=== PATIENT | female | born 1960 | race Caucasian/White ===

== ENCOUNTER 2020-06-28 07:25 | Outpatient (REF) | payer OTHER, SELFPAY ==
--- NOTE | 2020-06-28 07:49 | XR_ITS ---
EXAMINATION: BILATERAL AP KNEES STANDING. RIGHT KNEE 2 VIEWS. CLINICAL INFORMATION: Right knee pain COMPARISON: Right hand 05/04/2011 TECHNIQUE: AP bilateral knees standing. Right knee 2 views. FINDINGS: AP BILATERAL KNEE: There is loss of medial compartment joint space both knees with mild right and moderate left periarticular spurring. No loose bodies or joint effusion seen. RIGHT KNEE: There is loss of patellofemoral compartment joint space with mild suprapatellar spurring and anterior superior patellar enthesophyte at the insertion of quadriceps tendon. No loose bodies or bony erosive changes seen. The soft tissues are normal. XR/XR knee RT 2V IMPRESSION: Moderate degenerative changes medial and patellofemoral compartment right knee. No loose bodies or joint effusion seen. Moderate degenerative changes medial compartment left knee.
--- NOTE | 2020-06-28 07:49 | XR_ITS ---
EXAMINATION: BILATERAL AP KNEES STANDING. RIGHT KNEE 2 VIEWS. CLINICAL INFORMATION: Right knee pain COMPARISON: Right hand 05/04/2011 TECHNIQUE: AP bilateral knees standing. Right knee 2 views. FINDINGS: AP BILATERAL KNEE: There is loss of medial compartment joint space both knees with mild right and moderate left periarticular spurring. No loose bodies or joint effusion seen. RIGHT KNEE: There is loss of patellofemoral compartment joint space with mild suprapatellar spurring and anterior superior patellar enthesophyte at the insertion of quadriceps tendon. No loose bodies or bony erosive changes seen. The soft tissues are normal. XR/XR knee standing BI IMPRESSION: Moderate degenerative changes medial and patellofemoral compartment right knee. No loose bodies or joint effusion seen. Moderate degenerative changes medial compartment left knee.
== END 2020-06-28 07:26 | disposition home or self-care (01) ==
LOC: HO.HOSX 07:25
PROVIDERS: Visit Provider Orthopaedic Surgery
DX: M17.2 Bilateral post-traumatic osteoarthritis of knee (principal); T14.90XS Injury, unspecified, sequela; X58.XXXS Exposure to other specified factors, sequela; K21.9 Gastro-esophageal reflux disease without esophagitis; E66.9 Obesity, unspecified
CPT/HCPCS: 73560; 73565; 99212

== ENCOUNTER 2020-10-29 15:08 | Inpatient (IN) | payer OTHER, SELFPAY ==
--- NOTE | ~2020-10-29 | CT_ITS ---
EXAMINATION: CT ABDOMEN AND PELVIS WITHOUT CONTRAST CLINICAL INFORMATION: Abdominal pain, vomiting and distention COMPARISON: None TECHNIQUE: Multidetector volumetric imaging was performed from the superior aspect of the liver through the pubic symphysis. Sagittal and coronal reformatted images were obtained on the technologist's workstation. This CT examination was performed using dose optimization techniques as appropriate, variously including the following: *Automated exposure control *Adjustment of mA and/or kV according to patient size (this includes techniques or standardized protocols for targeted exams where dose is matched to indication/reason for exam; i.e. extremities or head) *Use of iterative reconstruction technique DLP: 1149 mGy-cm FINDINGS: LUNG BASES: The visualized lung bases are unremarkable. LIVER, GALLBLADDER, AND BILIARY TREE: The liver. Is low in attenuation suggestive of fatty infiltration. No focal liver lesion or biliary duct dilatation. The gallbladder is unremarkable with no evidence of radiopaque gallstones, gallbladder wall thickening, or obvious pericholecystic inflammatory changes. PANCREAS: Unremarkable. SPLEEN: Unremarkable. ADRENAL GLANDS: There is a 4.8 x 5.6 cm fatty left adrenal lesion probably representing a myelolipoma. The right adrenal gland is normal. KIDNEYS AND URETERS: There is mild to moderate left hydronephrosis from a 4 x 6 mm left UPJ stone. The right kidney is normal. BLADDER: Unremarkable. GASTROINTESTINAL TRACT: The small and large bowel are unremarkable. The appendix is unremarkable. ABDOMINAL WALL: There is diastasis of the rectus muscles and small vessel wall hernia containing fat. LYMPH NODES: Normal. VASCULAR: There are upper abdominal varices. PELVIC VISCERA: There is a 2 cm lesion exophytic to the uterine fundus probably representing a fibroid. Uterus and adnexa are otherwise. OSSEOUS STRUCTURES: There are degenerative changes of the spine and hip joints. CT/CT abdomen pelvis wo con IMPRESSION: Mild to moderate left hydronephrosis from a 4 x 6 mm left UPJ stone. Fatty liver. 4.8 x 5.6 cm fatty left adrenal lesion probably representing a benign myelolipoma. Probable fundal uterine fibroid.
--- NOTE | ~2020-10-29 | XR_ITS ---
EXAMINATION: XR ABDOMEN KUB CLINICAL INDICATION: Abdominal pain COMPARISON: 10/21/2020 TECHNIQUE: AP view of the abdomen. FINDINGS: There is a left ureteral stent in place. Multiple phleboliths overlie the pelvis. Nonobstructive bowel gas pattern. No dilated loops of bowel. Scattered gas and stool in the colon. The lung bases are clear. Mild degenerative changes of the spine. XR/XR KUB IMPRESSION: Nonobstructive bowel gas pattern. Left ureteral stent in place.
--- NOTE | ~2020-10-29 | FL_ITS ---
PROCEDURE: Intraoperative fluoroscopy INDICATION: Retrograde urography, renal stone FLUOROSCOPY: Fluoroscopy Time: 36.9 seconds Dose: 27.5 mGy Images saved: 1 TECHNIQUE: A single intraoperative fluoroscopic image is submitted during reported retrograde urography. Correlation with operative report. Evaluation is limited secondary to fluoroscopic technique. FL/FL guidance in OR IMPRESSION: Fluoroscopy was provided by radiology for this procedure. Please refer to the operative report for further information.
[2020-10-29 15:38] VITALS: BP 186/97; PULSE 69; RESP 20; TEMP 37.2; O2SAT 97; BMI 47.5
--- NOTE | 2020-10-29 15:47 | ED.ABDPAIN ---
HPI - Abdominal Pain General Chief Complaint: Abdominal Pain <LAYTON De Souza Last Filed: 10/29/20 17:12> Stated Complaint: abd pain, n/v/d <LAYTON De Souza - Last Filed: 10/29/20 17:12> Time Seen by Provider: 10/29/20 15:45 <LAYTON De Souza Last Filed: 10/29/20 17:12> Source: patient and EMS <LAYTON De Souza Last Filed: 10/29/20 17:12> Mode of arrival: EMS <LAYTON De Souza Last Filed: 10/29/20 17:12> Limitations: no limitations <LAYTON De Souza Last Filed: 10/29/20 17:12> History of Present Illness HPI narrative: 60 y/o female with history of GERD, HLD, HTN who presents to the ER with reports of epigastric abdominal pain as well as nausea and vomiting that started today. Pain has been worsening and is now 10/10. She reports the pain is in her central and upper abdomen and constant. She has had a few loose stools today as well. No blood in her stool or vomit. She denies fever, chills, urinary symptoms, cough, SOB or chest pain. She has never had pain like this before. She denies ETOH or any drug use. She denies any abdominal surgeries in the past. <LAYTON De Souza - Last Filed: 10/29/20 17:12> MD elicited complaint: abdominal pain <LAYTON De Souza Last Filed: 10/29/20 17:12> Onset (ago): hour(s) (8) <LAYTON De Souza Last Filed: 10/29/20 17:12> Pain Consistency: constant <LAYTON De Souza Last Filed: 10/29/20 17:12> Location: epigastric <LAYTON De Souza Last Filed: 10/29/20 17:12> Severity: severe <LAYTON De Souza Last Filed: 10/29/20 17:12> Pain scale (0-10): 10 <LAYTON De Souza Last Filed: 10/29/20 17:12> Quality: stabbing <LAYTON De Souza Last Filed: 10/29/20 17:12> Radiation: none <LAYTON De Souza Last Filed: 10/29/20 17:12> Migration to: no migration <LAYTON De Souza Last Filed: 10/29/20 17:12> Exacerbating factors: nothing <LAYTON De Souza Last Filed: 10/29/20 17:12> Relieving factors: nothing <LAYTON De Souza Last Filed: 10/29/20 17:12> Associated symptoms: nausea, vomiting and diarrhea <LAYTON De Souza Last Filed: 10/29/20 17:12> Related Data Home Medications: Home Medications Medication Instructions Recorded Confirmed atorvastatin 40 mg tablet 40 mg PO DAILY 04/14/20 06/14/20 fluticasone propionate 50 1 spray INTRANASAL DAILY 04/14/20 06/14/20 mcg/actuation nasal spray,suspension lisinopril 40 mg tablet 40 mg PO DAILY 04/14/20 06/14/20 loratadine 10 mg tablet 10 mg PO DAILY 04/14/20 06/14/20 naproxen 500 mg tablet,delayed 500 mg PO Q12H 04/14/20 06/14/20 release trazodone 100 mg tablet 100 mg PO BEDTIME PRN 04/14/20 06/14/20 hydrochlorothiazide 25 mg PO DAILY 05/12/20 06/14/20 lorazepam 1 mg tablet 1 mg PO BID 06/14/20 06/14/20 topiramate 25 mg PO BID 10/29/20 10/29/20 tramadol 50 mg PO Q8H PRN 10/29/20 10/29/20 Previous Rx's Medication Instructions Recorded citalopram 20 mg tablet 20 mg PO DAILY 90 Days #90 tab 08/04/20 famotidine 20 mg tablet 20 mg PO BID 30 Days #60 tab 08/09/20 albuterol sulfate 2.5 mg INHALATION TID PRN 30 Days 09/09/20 #270 ml fluticasone propionate 110 1 puff INHALATION BID 30 Days #12 g 09/09/20 mcg/actuation HFA aerosol inhaler <LAYTON De Souza Last Filed: 10/29/20 17:12> Allergies/Adverse Reactions: Allergies Allergy/AdvReac Type Severity Reaction Status Date / Time No Known Allergies Allergy Verified 06/28/20 08:09 <LAYTON De Souza - Last Filed: 10/29/20 17:12> Review of Systems Review of Systems Constitutional: No Fever, No Chills ENT/Mouth: No sore throat, No Rhinorrhea, No Swallowing Difficulty Eyes: No Eye Pain, No Swelling, No Redness Cardiovascular: No Chest Pain, No SOB, No Orthopnea, No Edema Respiratory: No Cough, No Sputum, No Wheezing, No dyspnea Gastrointestinal: No Nausea, No Vomiting, No Diarrhea, No abdominal Pain, No Hematochezia, No Melena Genitourinary: No Dysuria, No Urinary Frequency, No Hematuria Musculoskeletal: No joint pain, No Myalgias Skin: No Skin Lesions, No rash Neuro: No Weakness, No Numbness, No Dizziness, No Headache Psych: No Anxiety/Panic, No Depression Heme/Lymph: No Bruising, No Lymphadenopathy Endocrine: No Polyuria, No Polydipsia <LAYTON De Souza - Last Filed: 10/29/20 17:12> Physical Exam Vital Signs: Vital Signs: Last Vital Signs Temp 99.0 F 10/29/20 15:38 Pulse 84 10/29/20 18:50 Resp 16 10/29/20 18:50 BP 161/74 H 10/29/20 18:50 Pulse Ox 96 10/29/20 18:50 Body Mass Index 47.5 Appearance: Alert. Oriented X3. Appears uncomfortable. Eyes: Pupils equal, round and reactive to light. ENT: Pharynx normal. Neck: Normal inspection. Neck supple. CVS: Normal heart rate and rhythm. Pulses normal. Respiratory: No respiratory distress. Breath sounds normal. Abdomen: Morbidly obese, Soft with epigastric tenderness and guarding. +BS x4 Skin: Skin warm and dry. Normal skin color. Normal skin turgor. No rashes. Extremities: No lower extremity edema. Neuro: Oriented X 3. No motor deficit. No sensory deficit. <LAYTON De Souza - Last Filed: 10/29/20 17:12> Vital Signs: Last Vital Signs Temp 99.0 F 10/29/20 15:38 Pulse 84 10/29/20 18:50 Resp 16 10/29/20 18:50 BP 161/74 H 10/29/20 18:50 Pulse Ox 96 10/29/20 18:50 Body Mass Index 47.5 <Mary Ellen Brooks NP - Last Filed: 10/29/20 19:45> Course Course Course Narrative: 60 y/o female presenting with epigastric abdominal pain, nausea and vomiting that started today. She is uncomfortable and states the pain is 10/10. Will get CT scan and lab workup. IVF, zofran and morphine ordered. <LAYTON De Souza - Last Filed: 10/29/20 17:12> 7:20 p.m. discussion with hospitalist regarding plan of care, plan is to admit for obstructing renal calculus, hydronephrosis. <Mary Ellen Brooks NP - Last Filed: 10/29/20 19:45> Reevaluation(s) Reevaluation #1: CT scan showing Mild to moderate left hydronephrosis from a 4 x 6 mm left UPJ stone. Fatty liver. 4.8 x 5.6 cm fatty left adrenal lesion probably representing a benign myelolipoma. Probable fundal uterine fibroid. Labs and UA still pending. Patient unlikely to pass this stone on her own. Will get urology consult, give steroids and flomax now. Anticipate she will require admission for further management. Signed out to Mary Ellen ESPINOZA who will assume care. <LAYTON De Souza - Last Filed: 10/29/20 17:12> Consultations Consultation #1: Urology - Dr. Zabala reviewed imaging - will likely need intervention. <LAYTON De Souza - Last Filed: 10/29/20 17:12> Devineni <Mary Ellen Brooks NP - Last Filed: 10/29/20 19:45> Time: 19:15 <Mary Ellen Brooks NP - Last Filed: 10/29/20 19:45> MDM - Abdominal Pain Lab Data Result diagrams: : 10/29/20 17:18 10/29/20 17:18 <LAYTON De Souza - Last Filed: 10/29/20 17:12> Labs: Lab Results 10/29/20 10/29/20 10/29/20 Range/Units 17:18 17:18 17:18 WBC 15.0 H (4.8-10.8) X10*3/uL RBC 5.05 (4.20-5.50) X10*6/uL Hgb 12.7 (12.0-16.0) g/dl Hct 40.1 (37-47) % MCV 79.4 L (80-98) fL MCH 25.1 L (27.0-33.0) pg MCHC 31.7 (31.0-35.0) g/dl RDW 14.9 (11.0-16.0) % Plt Count 293 (160-400) X10*3/uL MPV 9.9 (9.4-12.3) fL Immature Gran % (Auto) 0.5 H (0.0-0.4) % Neut % (Auto) 88.7 H (45-73) % Lymph % (Auto) 6.4 L (20-40) % [place] % (Auto) 4.1 (2-11) % Eos % (Auto) 0.1 (0-4) % Baso % (Auto) 0.2 (0-2) % Lymph # (Auto) 1.0 L (1.2-4.9) X10*3/uL [place] # (Auto) 0.6 (0.1-1.2) X10*3/uL Eos # (Auto) 0.0 (0.0-0.4) X10*3/uL Baso # (Auto) 0.0 (0.0-0.2) X10*3/uL Abs Immat Gran (auto) 0.07 H (0.00-0.03) X10*3/uL Absolute Neuts (auto) 13.4 H (2.0-8.3) X10*3/uL Absolute Nucleated RBC 0.000 (0.0-0.012) X10*3/uL Nucleated RBC % (auto) 0.0 (0.0-0.2) /100WBC PT (10.8-13.0) SEC INR (0.9-1.1) APTT (24.1-38.0) SEC Hold Blue Top SEE NOTE Sodium 139 (135-145) mmol/L Potassium 3.9 (3.3-5.1) mmol/L Chloride 102 (96-108) mmol/L Carbon Dioxide 25 (22-29) mmol/L Anion Gap 16 (12-20) BUN 9 (9-16) mg/dL Creatinine 0.79 (0.5-1.4) mg/dL Estim Creat Clear Calc 96.9 Estimated GFR > 60 Random Glucose 278 H (60-115) mg/dL Lactic Acid (0.5-2.0) mmol/L Calcium 9.3 (8.4-10.2) mg/dL Magnesium 1.8 (1.6-2.6) mg/dL Total Bilirubin 0.7 (0.0-1.0) mg/dL Direct Bilirubin 0.3 (0.0-0.5) mg/dL AST 27 (5-31) U/L ALT 24 (0-31) U/L Alkaline Phosphatase 133 H (39-117) U/L Total Protein 8.0 (6.5-8.0) g/dL Albumin 4.0 (3.5-5.0) g/dL Lipase 23 (8-78) U/L Urine Color Urine Appearance Urine pH (5.0-8.0) Ur Specific [place] (1.005-1.025) Urine Protein (NEG-TRACE) MG/DL Urine Glucose (UA) (NEG) MG/DL Urine Ketones (NEG) MG/DL Urine Blood (NEG) Urine Nitrite (NEG) Ur Leukocyte Esterase (NEG) Urine RBC (0) /HPF Urine WBC (0-4) /HPF Ur Squamous Epith Cells /LPF Urine Bacteria /LPF Urine Opiates Screen (Not Detect) Ur Barbiturates Screen (Not Detect) Ur Phencyclidine Scrn (Not Detect) Ur Amphetamines Screen (Not Detect) U Benzodiazepines Scrn (Not Detect) Urine Cocaine Screen (Not Detect) U Marijuana (THC) Screen (Not Detect) 10/29/20 10/29/20 10/29/20 Range/Units 18:08 18:08 18:41 WBC (4.8-10.8) X10*3/uL RBC (4.20-5.50) X10*6/uL Hgb (12.0-16.0) g/dl Hct (37-47) % MCV (80-98) fL MCH (27.0-33.0) pg MCHC (31.0-35.0) g/dl RDW (11.0-16.0) % Plt Count (160-400) X10*3/uL MPV (9.4-12.3) fL Immature Gran % (Auto) (0.0-0.4) % Neut % (Auto) (45-73) % Lymph % (Auto) (20-40) % [place] % (Auto) (2-11) % Eos % (Auto) (0-4) % Baso % (Auto) (0-2) % Lymph # (Auto) (1.2-4.9) X10*3/uL [place] # (Auto) (0.1-1.2) X10*3/uL Eos # (Auto) (0.0-0.4) X10*3/uL Baso # (Auto) (0.0-0.2) X10*3/uL Abs Immat Gran (auto) (0.00-0.03) X10*3/uL Absolute Neuts (auto) (2.0-8.3) X10*3/uL Absolute Nucleated RBC (0.0-0.012) X10*3/uL Nucleated RBC % (auto) (0.0-0.2) /100WBC PT 14.0 H (10.8-13.0) SEC INR 1.2 H (0.9-1.1) APTT 29.9 (24.1-38.0) SEC Hold Blue Top Sodium (135-145) mmol/L Potassium (3.3-5.1) mmol/L Chloride (96-108) mmol/L Carbon Dioxide (22-29) mmol/L Anion Gap (12-20) BUN (9-16) mg/dL Creatinine (0.5-1.4) mg/dL Estim Creat Clear Calc Estimated GFR Random Glucose (60-115) mg/dL Lactic Acid 2.3 H* (0.5-2.0) mmol/L Calcium (8.4-10.2) mg/dL Magnesium (1.6-2.6) mg/dL Total Bilirubin (0.0-1.0) mg/dL Direct Bilirubin (0.0-0.5) mg/dL AST (5-31) U/L ALT (0-31) U/L Alkaline Phosphatase (39-117) U/L Total Protein (6.5-8.0) g/dL Albumin (3.5-5.0) g/dL Lipase (8-78) U/L Urine Color YELLOW Urine Appearance CLEAR Urine pH 6.5 (5.0-8.0) Ur Specific [place] 1.015 (1.005-1.025) Urine Protein NEG (NEG-TRACE) MG/DL Urine Glucose (UA) 500 H (NEG) MG/DL Urine Ketones 40 (NEG) MG/DL Urine Blood 1+ H (NEG) Urine Nitrite NEG (NEG) Ur Leukocyte Esterase NEG (NEG) Urine RBC 10-14 H (0) /HPF Urine WBC 0-2 (0-4) /HPF Ur Squamous Epith Cells 1+ /LPF Urine Bacteria NONE /LPF Urine Opiates Screen (Not Detect) Ur Barbiturates Screen (Not Detect) Ur Phencyclidine Scrn (Not Detect) Ur Amphetamines Screen (Not Detect) U Benzodiazepines Scrn (Not Detect) Urine Cocaine Screen (Not Detect) U Marijuana (THC) Screen (Not Detect) 10/29/20 Range/Units 18:41 WBC (4.8-10.8) X10*3/uL RBC (4.20-5.50) X10*6/uL Hgb (12.0-16.0) g/dl Hct (37-47) % MCV (80-98) fL MCH (27.0-33.0) pg MCHC (31.0-35.0) g/dl RDW (11.0-16.0) % Plt Count (160-400) X10*3/uL MPV (9.4-12.3) fL Immature Gran % (Auto) (0.0-0.4) % Neut % (Auto) (45-73) % Lymph % (Auto) (20-40) % [place] % (Auto) (2-11) % Eos % (Auto) (0-4) % Baso % (Auto) (0-2) % Lymph # (Auto) (1.2-4.9) X10*3/uL [place] # (Auto) (0.1-1.2) X10*3/uL Eos # (Auto) (0.0-0.4) X10*3/uL Baso # (Auto) (0.0-0.2) X10*3/uL Abs Immat Gran (auto) (0.00-0.03) X10*3/uL Absolute Neuts (auto) (2.0-8.3) X10*3/uL Absolute Nucleated RBC (0.0-0.012) X10*3/uL Nucleated RBC % (auto) (0.0-0.2) /100WBC PT (10.8-13.0) SEC INR (0.9-1.1) APTT (24.1-38.0) SEC Hold Blue Top Sodium (135-145) mmol/L Potassium (3.3-5.1) mmol/L Chloride (96-108) mmol/L Carbon Dioxide (22-29) mmol/L Anion Gap (12-20) BUN (9-16) mg/dL Creatinine (0.5-1.4) mg/dL Estim Creat Clear Calc Estimated GFR Random Glucose (60-115) mg/dL Lactic Acid (0.5-2.0) mmol/L Calcium (8.4-10.2) mg/dL Magnesium (1.6-2.6) mg/dL Total Bilirubin (0.0-1.0) mg/dL Direct Bilirubin (0.0-0.5) mg/dL AST (5-31) U/L ALT (0-31) U/L Alkaline Phosphatase (39-117) U/L Total Protein (6.5-8.0) g/dL Albumin (3.5-5.0) g/dL Lipase (8-78) U/L Urine Color Urine Appearance Urine pH (5.0-8.0) Ur Specific [place] (1.005-1.025) Urine Protein (NEG-TRACE) MG/DL Urine Glucose (UA) (NEG) MG/DL Urine Ketones (NEG) MG/DL Urine Blood (NEG) Urine Nitrite (NEG) Ur Leukocyte Esterase (NEG) Urine RBC (0) /HPF Urine WBC (0-4) /HPF Ur Squamous Epith Cells /LPF Urine Bacteria /LPF Urine Opiates Screen POSITIVE H (Not Detect) Ur Barbiturates Screen Not Detected (Not Detect) Ur Phencyclidine Scrn Not Detected (Not Detect) Ur Amphetamines Screen Not Detected (Not Detect) U Benzodiazepines Scrn Not Detected (Not Detect) Urine Cocaine Screen POSITIVE H (Not Detect) U Marijuana (THC) Screen Not Detected (Not Detect) <LAYTON De Souza - Last Filed: 10/29/20 17:12> Lab Results 10/29/20 10/29/20 10/29/20 Range/Units 17:18 17:18 17:18 WBC 15.0 H (4.8-10.8) X10*3/uL RBC 5.05 (4.20-5.50) X10*6/uL Hgb 12.7 (12.0-16.0) g/dl Hct 40.1 (37-47) % MCV 79.4 L (80-98) fL MCH 25.1 L (27.0-33.0) pg MCHC 31.7 (31.0-35.0) g/dl RDW 14.9 (11.0-16.0) % Plt Count 293 (160-400) X10*3/uL MPV 9.9 (9.4-12.3) fL Immature Gran % (Auto) 0.5 H (0.0-0.4) % Neut % (Auto) 88.7 H (45-73) % Lymph % (Auto) 6.4 L (20-40) % [place] % (Auto) 4.1 (2-11) % Eos % (Auto) 0.1 (0-4) % Baso % (Auto) 0.2 (0-2) % Lymph # (Auto) 1.0 L (1.2-4.9) X10*3/uL [place] # (Auto) 0.6 (0.1-1.2) X10*3/uL Eos # (Auto) 0.0 (0.0-0.4) X10*3/uL Baso # (Auto) 0.0 (0.0-0.2) X10*3/uL Abs Immat Gran (auto) 0.07 H (0.00-0.03) X10*3/uL Absolute Neuts (auto) 13.4 H (2.0-8.3) X10*3/uL Absolute Nucleated RBC 0.000 (0.0-0.012) X10*3/uL Nucleated RBC % (auto) 0.0 (0.0-0.2) /100WBC PT (10.8-13.0) SEC INR (0.9-1.1) APTT (24.1-38.0) SEC Hold Blue Top SEE NOTE Sodium 139 (135-145) mmol/L Potassium 3.9 (3.3-5.1) mmol/L Chloride 102 (96-108) mmol/L Carbon Dioxide 25 (22-29) mmol/L Anion Gap 16 (12-20) BUN 9 (9-16) mg/dL Creatinine 0.79 (0.5-1.4) mg/dL Estim Creat Clear Calc 96.9 Estimated GFR > 60 Random Glucose 278 H (60-115) mg/dL Lactic Acid (0.5-2.0) mmol/L Calcium 9.3 (8.4-10.2) mg/dL Magnesium 1.8 (1.6-2.6) mg/dL Total Bilirubin 0.7 (0.0-1.0) mg/dL Direct Bilirubin 0.3 (0.0-0.5) mg/dL AST 27 (5-31) U/L ALT 24 (0-31) U/L Alkaline Phosphatase 133 H (39-117) U/L Total Protein 8.0 (6.5-8.0) g/dL Albumin 4.0 (3.5-5.0) g/dL Lipase 23 (8-78) U/L Urine Color Urine Appearance Urine pH (5.0-8.0) Ur Specific [place] (1.005-1.025) Urine Protein (NEG-TRACE) MG/DL Urine Glucose (UA) (NEG) MG/DL Urine Ketones (NEG) MG/DL Urine Blood (NEG) Urine Nitrite (NEG) Ur Leukocyte Esterase (NEG) Urine RBC (0) /HPF Urine WBC (0-4) /HPF Ur Squamous Epith Cells /LPF Urine Bacteria /LPF Urine Opiates Screen (Not Detect) Ur Barbiturates Screen (Not Detect) Ur Phencyclidine Scrn (Not Detect) Ur Amphetamines Screen (Not Detect) U Benzodiazepines Scrn (Not Detect) Urine Cocaine Screen (Not Detect) U Marijuana (THC) Screen (Not Detect) 10/29/20 10/29/20 10/29/20 Range/Units 18:08 18:08 18:41 WBC (4.8-10.8) X10*3/uL RBC (4.20-5.50) X10*6/uL Hgb (12.0-16.0) g/dl Hct (37-47) % MCV (80-98) fL MCH (27.0-33.0) pg MCHC (31.0-35.0) g/dl RDW (11.0-16.0) % Plt Count (160-400) X10*3/uL MPV (9.4-12.3) fL Immature Gran % (Auto) (0.0-0.4) % Neut % (Auto) (45-73) % Lymph % (Auto) (20-40) % [place] % (Auto) (2-11) % Eos % (Auto) (0-4) % Baso % (Auto) (0-2) % Lymph # (Auto) (1.2-4.9) X10*3/uL [place] # (Auto) (0.1-1.2) X10*3/uL Eos # (Auto) (0.0-0.4) X10*3/uL Baso # (Auto) (0.0-0.2) X10*3/uL Abs Immat Gran (auto) (0.00-0.03) X10*3/uL Absolute Neuts (auto) (2.0-8.3) X10*3/uL Absolute Nucleated RBC (0.0-0.012) X10*3/uL Nucleated RBC % (auto) (0.0-0.2) /100WBC PT 14.0 H (10.8-13.0) SEC INR 1.2 H (0.9-1.1) APTT 29.9 (24.1-38.0) SEC Hold Blue Top Sodium (135-145) mmol/L Potassium (3.3-5.1) mmol/L Chloride (96-108) mmol/L Carbon Dioxide (22-29) mmol/L Anion Gap (12-20) BUN (9-16) mg/dL Creatinine (0.5-1.4) mg/dL Estim Creat Clear Calc Estimated GFR Random Glucose (60-115) mg/dL Lactic Acid 2.3 H* (0.5-2.0) mmol/L Calcium (8.4-10.2) mg/dL Magnesium (1.6-2.6) mg/dL Total Bilirubin (0.0-1.0) mg/dL Direct Bilirubin (0.0-0.5) mg/dL AST (5-31) U/L ALT (0-31) U/L Alkaline Phosphatase (39-117) U/L Total Protein (6.5-8.0) g/dL Albumin (3.5-5.0) g/dL Lipase (8-78) U/L Urine Color YELLOW Urine Appearance CLEAR Urine pH 6.5 (5.0-8.0) Ur Specific [place] 1.015 (1.005-1.025) Urine Protein NEG (NEG-TRACE) MG/DL Urine Glucose (UA) 500 H (NEG) MG/DL Urine Ketones 40 (NEG) MG/DL Urine Blood 1+ H (NEG) Urine Nitrite NEG (NEG) Ur Leukocyte Esterase NEG (NEG) Urine RBC 10-14 H (0) /HPF Urine WBC 0-2 (0-4) /HPF Ur Squamous Epith Cells 1+ /LPF Urine Bacteria NONE /LPF Urine Opiates Screen (Not Detect) Ur Barbiturates Screen (Not Detect) Ur Phencyclidine Scrn (Not Detect) Ur Amphetamines Screen (Not Detect) U Benzodiazepines Scrn (Not Detect) Urine Cocaine Screen (Not Detect) U Marijuana (THC) Screen (Not Detect) 10/29/20 Range/Units 18:41 WBC (4.8-10.8) X10*3/uL RBC (4.20-5.50) X10*6/uL Hgb (12.0-16.0) g/dl Hct (37-47) % MCV (80-98) fL MCH (27.0-33.0) pg MCHC (31.0-35.0) g/dl RDW (11.0-16.0) % Plt Count (160-400) X10*3/uL MPV (9.4-12.3) fL Immature Gran % (Auto) (0.0-0.4) % Neut % (Auto) (45-73) % Lymph % (Auto) (20-40) % [place] % (Auto) (2-11) % Eos % (Auto) (0-4) % Baso % (Auto) (0-2) % Lymph # (Auto) (1.2-4.9) X10*3/uL [place] # (Auto) (0.1-1.2) X10*3/uL Eos # (Auto) (0.0-0.4) X10*3/uL Baso # (Auto) (0.0-0.2) X10*3/uL Abs Immat Gran (auto) (0.00-0.03) X10*3/uL Absolute Neuts (auto) (2.0-8.3) X10*3/uL Absolute Nucleated RBC (0.0-0.012) X10*3/uL Nucleated RBC % (auto) (0.0-0.2) /100WBC PT (10.8-13.0) SEC INR (0.9-1.1) APTT (24.1-38.0) SEC Hold Blue Top Sodium (135-145) mmol/L Potassium (3.3-5.1) mmol/L Chloride (96-108) mmol/L Carbon Dioxide (22-29) mmol/L Anion Gap (12-20) BUN (9-16) mg/dL Creatinine (0.5-1.4) mg/dL Estim Creat Clear Calc Estimated GFR Random Glucose (60-115) mg/dL Lactic Acid (0.5-2.0) mmol/L Calcium (8.4-10.2) mg/dL Magnesium (1.6-2.6) mg/dL Total Bilirubin (0.0-1.0) mg/dL Direct Bilirubin (0.0-0.5) mg/dL AST (5-31) U/L ALT (0-31) U/L Alkaline Phosphatase (39-117) U/L Total Protein (6.5-8.0) g/dL Albumin (3.5-5.0) g/dL Lipase (8-78) U/L Urine Color Urine Appearance Urine pH (5.0-8.0) Ur Specific [place] (1.005-1.025) Urine Protein (NEG-TRACE) MG/DL Urine Glucose (UA) (NEG) MG/DL Urine Ketones (NEG) MG/DL Urine Blood (NEG) Urine Nitrite (NEG) Ur Leukocyte Esterase (NEG) Urine RBC (0) /HPF Urine WBC (0-4) /HPF Ur Squamous Epith Cells /LPF Urine Bacteria /LPF Urine Opiates Screen POSITIVE H (Not Detect) Ur Barbiturates Screen Not Detected (Not Detect) Ur Phencyclidine Scrn Not Detected (Not Detect) Ur Amphetamines Screen Not Detected (Not Detect) U Benzodiazepines Scrn Not Detected (Not Detect) Urine Cocaine Screen POSITIVE H (Not Detect) U Marijuana (THC) Screen Not Detected (Not Detect) <Mary Ellen Brooks NP - Last Filed: 10/29/20 19:45> Critical Care Time Critical Care Time Critical Care Time: Yes <Mary Ellen Brooks NP - Last Filed: 10/29/20 19:45> Total Critical Care Time: 45 <Mary Ellen Brooks NP - Last Filed: 10/29/20 19:45> Attestation: I have personally provided critical care time exclusive of time spent on separately billable procedures. Time includes review of laboratory data, radiology results, discussion with consultants, and monitoring for potential decompensation. Interventions were performed as documented. <Mary Ellen Brooks NP - Last Filed: 10/29/20 19:45> Discharge Plan Discharge Clinical Impression: Hydronephrosis with renal calculous obstruction <LAYTON De Souza - Last Filed: 10/29/20 17:12> Patient Disposition: Admitted As Inpatient <LAYTON De Souza - Last Filed: 10/29/20 17:12> [facility] Past Medical History Medical History: Medical History (Updated 10/29/20 @ 19:42 by Mary Ellen Brooks NP) Arthritis Asthma Bilateral post-traumatic osteoarthritis of knee Depression Dyslipidemia GERD (gastroesophageal reflux disease) History of allergic rhinitis History of headache Hx of low back pain Hypertension Insomnia Obesity Right knee pain <LAYTON De Souza - Last Filed: 10/29/20 17:12> Surgical History: Surgical History History of open reduction and internal fixation (ORIF) procedure <LAYTON De Souza - Last Filed: 10/29/20 17:12> Family History Family History: Family History Father No problems noted. Mother No problems noted. Maternal Grandmother Throat cancer Sister In good health Brother In good health <LAYTON De Souza - Last Filed: 10/29/20 17:12> Social History Social History: Social History Are you a primary rental boats caretaker to a significant other at home: No Do you presently have visiting nurse or other home services: No Alcohol intake: former Patient Tobacco Use Status: Never used Tobacco Use of substances other than those prescribed or required for medical reasons: No Advance Directives: No Advance Directives Information Provided: Yes Current occupational status: disabled Current occupation: right handed <LAYTON De Souza - Last Filed: 10/29/20 17:12>
[2020-10-29] MEDS: ondansetron HCL 4 MG/2 ML VIAL IVPUSH (16:00)
[2020-10-29] MEDS: 0.9 % Sodium Chloride 1,000 ML 999 ML IVCONT ×2 (16:01→18:45)
[2020-10-29] MEDS: Morphine Sulfate 4 MG/ML CARTRIDGE IVPUSH (17:24)
[2020-10-29 17:27] VITALS: BP 189/83; PULSE 91; RESP 16; O2SAT 98
[2020-10-29 17:27] LABS: MANUAL DIFF FLAG NO
[2020-10-29 17:29] LABS: Basophils Percent Auto 0.2 % (0-2); Eosinophils Percent Auto 0.1 % (0-4); Hematocrit 40.1 % (37-47); Hemoglobin 12.7 g/dl (12.0-16.0); Imm Gran Abs Auto 0.07 X10*3/uL (0.00-0.03); Imm Gran Pct Auto 0.5 % (0.0-0.4); Lymphocytes Percent Auto 6.4 % (20-40); Mean Corpuscular HGB Conc 31.7 g/dl (31.0-35.0); Mean Corpuscular Hemoglobin 25.1 pg (27.0-33.0); Mean Corpuscular Volume 79.4 fL (80-98); Mean Platelet Volume 9.9 fL (9.4-12.3); Monocytes Absolute Auto 0.6 X10*3/uL (0.1-1.2); Monocytes Percent Auto 4.1 % (2-11); Neutrophils Absolute Auto 13.4 X10*3/uL (2.0-8.3); Neutrophils Percent Auto 88.7 % (45-73); Platelet Count 293 X10*3/uL (160-400); Red Blood Count 5.05 X10*6/uL (4.20-5.50); Red Cell Distribution Width 14.9 % (11.0-16.0)
--- NOTE | 2020-10-29 17:35 | PC.NURSE ---
Plan for admission, Veronica to bedside discussing plan, pt agreeable
[2020-10-29 17:57] LABS: Alanine Aminotransferase 24 U/L (0-31); Alkaline Phosphatase 133 U/L (39-117); Anion Gap 16 (12-20); Aspartate Amino Transferase 27 U/L (5-31); Bilirubin Direct 0.3 mg/dL (0.0-0.5); Bilirubin Total 0.7 mg/dL (0.0-1.0); Blood Urea Nitrogen 9 mg/dL (9-16); Calcium 9.3 mg/dL (8.4-10.2); Carbon Dioxide 25 mmol/L (22-29); Chloride 102 mmol/L (96-108); Creatinine Clr Calc Pharmacy 96.9; Estimated Glomerular Filt Rate > 60; Glucose Random 278 mg/dL (60-115); Lipase 23 U/L (8-78); Magnesium 1.8 mg/dL (1.6-2.6); Potassium 3.9 mmol/L (3.3-5.1); Sodium 139 mmol/L (135-145)
[2020-10-29 18:22] LABS: INTERNATIONAL NORM RATIO 1.2 (0.9-1.1)
[2020-10-29 18:25] LABS: Partial Thromboplastin Time 29.9 SEC (24.1-38.0)
--- NOTE | 2020-10-29 18:40 | HE.PHANOTE ---
MED REC HAS BEEN UPATED BASED ON PATIENTS MOST RECENT PHARMACY CLAIM HISTORY. PATIENT IS NOT A GOOD HISTORIAN, FAMILY IS ALSO NOT ABLE TO VERIFY HOME MEDS. ACCORDING TO OLD LISTS PATIENT MAY ALSO BE ON ATORVASTATIN, FLONASE, HCTZ 25 MG, LISINOPRIL 40 MG,LORATADINE,LORAZEPAM,NAPROXEN AND TRAZODONE, HOWEVER NONE OF THESE MEDICATIONS HAVE BEEN FILLED AT HER PHARMACY RECENTLY
[2020-10-29 18:41] LABS: Lactic Acid 2.3 mmol/L (0.5-2.0)
[2020-10-29] MEDS: Insulin Regular, Human 100 UNIT/ML 3 ML VIAL 6 UNIT SUBCUT (18:45)
[2020-10-29] MEDS: levoFLOXacin/D5W 750 MG/150 ML PIGGYBACK 100 MG IV (18:46)
[2020-10-29 18:50] VITALS: BP 161/74; PULSE 84; RESP 16; O2SAT 96
[2020-10-29 18:52] LABS: Glucose Urine UA 500 MG/DL (NEG); Leukocyte Esterase Urine NEG (NEG); Nitrite Urine NEG (NEG); PH 6.5 (5.0-8.0); Specific Gravity - Urine 1.015 (1.005-1.025); Urine Blood 1+ (NEG); Urine Ketones 40 MG/DL (NEG); Urine Protein NEG (NEG-TRACE)
--- NOTE | 2020-10-29 18:52 | PC.NURSE ---
Pt medicated with Abx and additional NS liter. Vitals stable. Straight cath urine sent. Pt placed on 2lpm via nc, s/p morphine 02 noted to decrease while asleep to 90%, sat 96% on 2lpm via nc. Pt encouraged to eat, Insulin given as ordered
[2020-10-29 18:53] LABS: Appearance Urine CLEAR; Color Urine YELLOW
[2020-10-29 19:03] LABS: Squamous Epithelial Cell Urine 1+ /LPF; WBC Urine 0-2 /HPF (0-4)
[2020-10-29 19:17] LABS: Amphetamine Screen Urine Not Detected (Not Detect); Barbiturates, Urine Not Detected (Not Detect); Benzodiazepines Screen Urine Not Detected (Not Detect); Cannabinoid Screen Urine Not Detected (Not Detect); Cocaine Screen Urine POSITIVE (Not Detect); Opiate Screen Urine POSITIVE (Not Detect); Phencyclidine Screen Urine Not Detected (Not Detect)
[2020-10-29 20:13] LABS: Reflex Lactate? Lactic Acid Added
--- NOTE | 2020-10-29 20:23 | P.HPHOSP_ITS ---
History of Present Illness Date of Service: 10/29/20 Chief Complaint: Abdominal pain 60-year-old female with a past medical history of hypertension, hyperlipidemia, GERD presented to the hospital with a chief complaint of abdominal pain mainly in the epigastric area associated nausea and vomiting. Symptoms started today. Denies any blood in the vomitus. Denies any chest pain palpitations. Denies any numbness tingling. Denies any frequency urgency or dysuria. Review of all other systems is negative except mentioned above ER course: Per ER team patient exam noted tenderness in the abdomen, CT scan showed UPJ stone with hydronephrosis. Noted To have mild leukocytosis. Patient was empirically given levofloxacin. ER team spoke to Dr. natalya Burns from Urology who recommended admission to the medicine service and he will evaluate the patient for possible procedure in the morning. [facility] Medical History (Updated 11/04/20 @ 13:03 by Josephine Austin MD) Arthritis Asthma Bilateral post-traumatic osteoarthritis of knee Cocaine use Depression Diabetes mellitus Dyslipidemia GERD (gastroesophageal reflux disease) History of allergic rhinitis History of headache Hx of low back pain Hypertension Insomnia Obesity Right knee pain Family History Father No problems noted. Mother No problems noted. Maternal Grandmother Throat cancer Sister In good health Brother In good health Surgical History History of open reduction and internal fixation (ORIF) procedure Social History Household Members: Family Housing: Apartment Are you a primary healthcare network pricing consultant to a significant other at home: No Do you presently have visiting nurse or other home services: No Alcohol intake: former Patient Tobacco Use Status: Never used Tobacco Advance Directives: No Advance Directives Information Provided: No service: No Current occupational status: unemployed and disabled Current occupation: right handed Meds Allergies Allergy/AdvReac Type Severity Reaction Status Date / Time No Known Allergies Allergy Verified 11/04/20 12:55 Active Medications: Current Medications Generic Name Dose Route Start Last Admin Trade Name Freq PRN Reason Stop Dose Admin Acetaminophen 650 mg 10/29/20 20:17 Acetaminophen 325 Mg Tablet PO Q6H PRN Pain, Mild (Pain Scale 1-3) Albuterol Sulfate 2.5 mg 10/29/20 20:21 Albuterol Sulfate (0.083%) 2.5 Mg/3 Ml Vial.Neb INHALE TID PRN bronchospasm Famotidine 20 mg 10/29/20 21:00 Famotidine 20 Mg Tablet PO BID [facility] Hydromorphone HCl 0.5 mg 10/29/20 20:17 Hydromorphone Hcl 0.5 Mg/0.5 Ml Syringe SUBCUT Q6H PRN Pain, Severe (Pain Scale 7-10) Dextrose/Sodium Chloride 1,000 mls @ 50 mls/hr 10/29/20 20:30 D51/2ns IVCONT .Q20H NETTE Levofloxacin 500 mg 10/29/20 20:30 Levofloxacin 500 Mg Tablet PO Q24H NETTE Magnesium Hydroxide 30 ml 10/29/20 20:17 Milk Of Magnesia 30 Ml Oral.Susp PO DAILY PRN Constipation Non-Formulary Medication 20 mg 10/30/20 09:00 Citalopram PO DAILY [facility] Ondansetron HCl 4 mg 10/29/20 20:17 Ondansetron Hcl 4 Mg/2 Ml Vial IVPUSH Q8H PRN Nausea and Vomiting Pharmacy Consult 1 each 10/29/20 17:37 Consult Rx Perform Med Rec MISCELLANE ONCE PRN Consult order Senna 17.2 mg 10/29/20 20:17 Sennosides 8.6 Mg Tablet PO BEDTIME PRN Constipation Sodium Chloride 3 ml 10/30/20 00:00 0.9 % Sodium Chloride Flush 3 Ml Syringe IVFLUSH QSHIFT [facility] Topiramate 25 mg 10/29/20 21:00 Topiramate 25 Mg Tablet PO BID [facility] Home Medications Medication Instructions Recorded Confirmed Last Taken Type topiramate 25 mg PO BID 10/29/20 11/04/20 Unknown History Physical Exam Vital Signs and Narrative: Vital Signs: Last Vital Signs Temp 99.0 F 10/29/20 15:38 Pulse 84 10/29/20 18:50 Resp 16 10/29/20 18:50 BP 161/74 H 10/29/20 18:50 Pulse Ox 96 10/29/20 18:50 Body Mass Index 47.5 Gen: Appears be in no acute distress HEENT: NCAT, Moist mucosa. Pulmonary: Vesicular breath sounds, fair air entry CVS: Normal S1-S2 Abdomen: BS+, Soft, mildly tender diffusely. Extremities: Warm well perfused Neuro: Alert and awake. Results Labs CBC and Chem 7: 11/02/20 05:53 11/02/20 05:53 Labs: Laboratory Results - last 24 hr 10/29/20 10/29/20 10/29/20 17:18 17:18 17:18 MCV 79.4 L MCH 25.1 L MCHC 31.7 RDW 14.9 Plt Count 293 MPV 9.9 Immature Gran % (Auto) 0.5 H Neut % (Auto) 88.7 H Lymph % (Auto) 6.4 L [place] % (Auto) 4.1 Eos % (Auto) 0.1 Baso % (Auto) 0.2 Lymph # (Auto) 1.0 L [place] # (Auto) 0.6 Eos # (Auto) 0.0 Baso # (Auto) 0.0 Abs Immat Gran (auto) 0.07 H Absolute Neuts (auto) 13.4 H Absolute Nucleated RBC 0.000 Nucleated RBC % (auto) 0.0 PT INR APTT Hold Blue Top SEE NOTE Anion Gap 16 Estim Creat Clear Calc 96.9 Estimated GFR > 60 Random Glucose 278 H Lactic Acid Calcium 9.3 Magnesium 1.8 Total Bilirubin 0.7 Direct Bilirubin 0.3 AST 27 ALT 24 Alkaline Phosphatase 133 H Total Protein 8.0 Albumin 4.0 Lipase 23 Urine Color Urine Appearance Urine pH Ur Specific [place] Urine Protein Urine Glucose (UA) Urine Ketones Urine Blood Urine Nitrite Ur Leukocyte Esterase Urine RBC Urine WBC Ur Squamous Epith Cells Urine Bacteria Urine Opiates Screen Ur Barbiturates Screen Ur Phencyclidine Scrn Ur Amphetamines Screen U Benzodiazepines Scrn Urine Cocaine Screen U Marijuana (THC) Screen 10/29/20 10/29/20 10/29/20 18:08 18:08 18:41 MCV MCH MCHC RDW Plt Count MPV Immature Gran % (Auto) Neut % (Auto) Lymph % (Auto) [place] % (Auto) Eos % (Auto) Baso % (Auto) Lymph # (Auto) [place] # (Auto) Eos # (Auto) Baso # (Auto) Abs Immat Gran (auto) Absolute Neuts (auto) Absolute Nucleated RBC Nucleated RBC % (auto) PT 14.0 H INR 1.2 H APTT 29.9 Hold Blue Top Anion Gap Estim Creat Clear Calc Estimated GFR Random Glucose Lactic Acid 2.3 H* Calcium Magnesium Total Bilirubin Direct Bilirubin AST ALT Alkaline Phosphatase Total Protein Albumin Lipase Urine Color YELLOW Urine Appearance CLEAR Urine pH 6.5 Ur Specific [place] 1.015 Urine Protein NEG Urine Glucose (UA) 500 H Urine Ketones 40 Urine Blood 1+ H Urine Nitrite NEG Ur Leukocyte Esterase NEG Urine RBC 10-14 H Urine WBC 0-2 Ur Squamous Epith Cells 1+ Urine Bacteria NONE Urine Opiates Screen Ur Barbiturates Screen Ur Phencyclidine Scrn Ur Amphetamines Screen U Benzodiazepines Scrn Urine Cocaine Screen U Marijuana (THC) Screen 10/29/20 18:41 MCV MCH MCHC RDW Plt Count MPV Immature Gran % (Auto) Neut % (Auto) Lymph % (Auto) [place] % (Auto) Eos % (Auto) Baso % (Auto) Lymph # (Auto) [place] # (Auto) Eos # (Auto) Baso # (Auto) Abs Immat Gran (auto) Absolute Neuts (auto) Absolute Nucleated RBC Nucleated RBC % (auto) PT INR APTT Hold Blue Top Anion Gap Estim Creat Clear Calc Estimated GFR Random Glucose Lactic Acid Calcium Magnesium Total Bilirubin Direct Bilirubin AST ALT Alkaline Phosphatase Total Protein Albumin Lipase Urine Color Urine Appearance Urine pH Ur Specific [place] Urine Protein Urine Glucose (UA) Urine Ketones Urine Blood Urine Nitrite Ur Leukocyte Esterase Urine RBC Urine WBC Ur Squamous Epith Cells Urine Bacteria Urine Opiates Screen POSITIVE H Ur Barbiturates Screen Not Detected Ur Phencyclidine Scrn Not Detected Ur Amphetamines Screen Not Detected U Benzodiazepines Scrn Not Detected Urine Cocaine Screen POSITIVE H U Marijuana (THC) Screen Not Detected Imaging Radiologist's Impressions: Impressions Abdomen/Pelvis CT 10/29/20 15:53 IMPRESSION: Mild to moderate left hydronephrosis from a 4 x 6 mm left UPJ stone. Fatty liver. 4.8 x 5.6 cm fatty left adrenal lesion probably representing a benign myelolipoma. Probable fundal uterine fibroid. Assessment and Plan (1) Hydronephrosis with renal calculous obstruction: Status: Acute 60-year-old female with a past medical history of hypertension, hyperlipidemia, GERD presented to the hospital with a chief complaint of abdominal discomfort noted to have obstructed renal stone. Admitted for further management. Renal calculi/hydronephrosis: Pain control. Urology consult notified. Empiric levofloxacin. Will keep him NPO for now Hypertension/hyperlipidemia: Continue home medications. DVT prophylaxis: SCD boots Code status: Full code
[2020-10-29] MEDS: Dextrose 5 % and 0.45 % NaCl 1,000 ML 50 ML IVCONT (20:31)
[2020-10-29 22:50] VITALS: BP 180/80; PULSE 91; RESP 19; TEMP 36.8; O2SAT 94
[2020-10-29 22:55] LABS: COVID-19 Test Negative (Negative); IDNOW Serial# 9DD0AD1C
[2020-10-29 23:06] LABS: ~Lactic Acid-LAB USE ONLY 2.9 mmol/L (0.5-2.0)
[2020-10-29] MEDS: Topiramate 25 MG TABLET PO (23:41)
[2020-10-29] MEDS: Famotidine 20 MG TABLET PO (23:41)
[2020-10-30] VITALS (8 sets, daily range): BP systolic 138–174; BP diastolic 61–77; PULSE 73–102; RESP 16–20; TEMP 36.4–37.1; O2SAT 94–98
[2020-10-30 00:28] LABS: Reflex Lactate? 2 Y
[2020-10-30] MEDS: amLODIPine Besylate 2.5 MG TABLET PO (00:37)
[2020-10-30 01:16] LABS: ~Lactic Acid-LAB USE ONLY 2.5 mmol/L (0.5-2.0)
--- NOTE | 2020-10-30 01:48 | PC.NURSE ---
Patients blood pressure 180/83, pulse 91. Has history of HTN. Courtesy Van Driver at bedside. Asymptomatic. Denies any chest pain, headache, dizziness or SOB. Patient states she takes something every morning for blood pressure but cannot remember the name of the medication. Dr Reddy notified, and ordered a one time dose of Amlodipine 2.5mg. Patient is resting comfortably in bed. Telemonitor in place. Most recent BP 166/65.
[2020-10-30 06:47] LABS: MANUAL DIFF FLAG NO
[2020-10-30 07:03] LABS: Lactic Acid 1.2 mmol/L (0.5-2.0)
[2020-10-30 07:08] LABS: Basophils Percent Auto 0.1 % (0-2); Hemoglobin 12.3 g/dl (12.0-16.0); Imm Gran Abs Auto 0.06 X10*3/uL (0.00-0.03); Imm Gran Pct Auto 0.4 % (0.0-0.4); Lymphocytes Absolute Auto 1.2 X10*3/uL (1.2-4.9); Lymphocytes Percent Auto 8.4 % (20-40); Mean Corpuscular HGB Conc 31.5 g/dl (31.0-35.0); Mean Corpuscular Hemoglobin 25.1 pg (27.0-33.0); Mean Corpuscular Volume 79.6 fL (80-98); Mean Platelet Volume 10.2 fL (9.4-12.3); Monocytes Absolute Auto 0.9 X10*3/uL (0.1-1.2); Monocytes Percent Auto 6.1 % (2-11); Neutrophils Absolute Auto 12.2 X10*3/uL (2.0-8.3); Platelet Count 300 X10*3/uL (160-400); White Blood Count 14.3 X10*3/uL (4.8-10.8)
[2020-10-30 07:24] LABS: Anion Gap 14 (12-20); Blood Urea Nitrogen 13 mg/dL (9-16); Calcium 9.2 mg/dL (8.4-10.2); Carbon Dioxide 26 mmol/L (22-29); Chloride 103 mmol/L (96-108); Creatinine Clr Calc Pharmacy 83.2; Estimated Glomerular Filt Rate > 60; Glucose Random 204 mg/dL (60-115); Potassium 3.8 mmol/L (3.3-5.1); Sodium 139 mmol/L (135-145)
[2020-10-30] MEDS: Acetaminophen 325 MG TABLET 650 MG PO (09:31)
[2020-10-30] MEDS: Topiramate 25 MG TABLET PO ×2 (09:31→20:04)
[2020-10-30] MEDS: Escitalopram Oxalate 10 MG TABLET PO (09:31)
[2020-10-30] MEDS: Famotidine 20 MG TABLET PO ×2 (09:31→20:04)
--- NOTE | 2020-10-30 15:14 | HO.PM.IMPN ---
Subjective Subjective Date of Service: 10/30/20 Interval History: Flank pain Cardiovascular Cardiovascular: Reports no additional cardiovascular complaints Respiratory Respiratory: Reports no additional respiratory complaints Physical Exam Vital Signs: Vital Signs: Last Vital Signs Temp 97.8 F 10/30/20 15:11 Pulse 77 10/30/20 15:11 Resp 16 10/30/20 15:11 BP 174/77 H 10/30/20 15:11 Pulse Ox 94 10/30/20 15:11 Body Mass Index 47.5 General: AO X 3, no acute distress Resp: CTA bilateral CVS: S1,S2,RRR GI: soft, non tender, non distended Neuro: motor grossly intact Psych: appropriate affect Objective Data Current Medications Generic Name Dose Route Start Last Admin Trade Name Freq PRN Reason Stop Dose Admin Acetaminophen 650 mg 10/29/20 20:17 10/30/20 09:31 Acetaminophen 325 Mg Tablet PO 650 mg Q6H PRN Administration Pain, Mild (Pain Scale 1-3) Albuterol Sulfate 2.5 mg 10/29/20 20:21 Albuterol Sulfate (0.083%) 2.5 Mg/3 Ml Vial.Neb INHALE TID PRN bronchospasm Escitalopram Oxalate 10 mg 10/30/20 09:00 10/30/20 09:31 Escitalopram Oxalate 10 Mg Tablet PO 10 mg DAILY NETTE Administration Famotidine 20 mg 10/29/20 21:00 10/30/20 09:31 Famotidine 20 Mg Tablet PO 20 mg BID NETTE Administration Hydromorphone HCl 0.5 mg 10/29/20 20:17 Hydromorphone Hcl 0.5 Mg/0.5 Ml Syringe SUBCUT Q6H PRN Pain, Severe (Pain Scale 7-10) Dextrose/Sodium Chloride 1,000 mls @ 50 mls/hr 10/29/20 20:30 10/29/20 20:31 D51/2ns IVCONT 50 mls/hr .Q20H NETTE Administration Levofloxacin 500 mg 10/30/20 20:00 Levofloxacin 500 Mg Tablet PO Q24H NETTE Magnesium Hydroxide 30 ml 10/29/20 20:17 Milk Of Magnesia 30 Ml Oral.Susp PO DAILY PRN Constipation Ondansetron HCl 4 mg 10/29/20 20:17 Ondansetron Hcl 4 Mg/2 Ml Vial IVPUSH Q8H PRN Nausea and Vomiting Pharmacy Consult 1 each 10/29/20 17:37 Consult Rx Perform Med Rec MISCELLANE ONCE PRN Consult order Senna 17.2 mg 10/29/20 20:17 Sennosides 8.6 Mg Tablet PO BEDTIME PRN Constipation Sodium Chloride 3 ml 10/30/20 00:00 10/30/20 09:06 0.9 % Sodium Chloride Flush 3 Ml Syringe IVFLUSH Not Given QSHIFT NETTE Topiramate 25 mg 10/29/20 21:00 10/30/20 09:31 Topiramate 25 Mg Tablet PO 25 mg BID NETTE Administration Labs CBC & Chem 7: 10/30/20 06:21 10/30/20 06:21 Assessment and Plan (1) Hydronephrosis with renal calculous obstruction: Status: Acute Assessment and Plan: 60-year-old female presented with left flank pain found to have a 4 x 6 mm left UPJ stone Obstructing left UPJ stone [id number] hydronephrosis Urology eval empiric levaquin Hepatic steatosis Likely ESPINO Weight loss, outpatient follow-up DM normally diet controlled insulin sliding scale, check a1c
[2020-10-30 15:38] LABS: Estimated Average Glucose 194 mg/dL; Hemoglobin A1c % 8.4 %
--- NOTE | 2020-10-30 15:40 | P.CNUR_ITS ---
History of Present Illness Consult details Consult date: 10/30/20 Narrative: ATSP left proximal UPJ stone 60-year-old female Niuean speaker Qualified family practice medical doctor present One day history of pain 10/10 on left side Associated nausea and vomiting Did have some mild discomfort for 7 days prior No reported fever, hematuria No prior history of stones Imaging shows 6 mm left UPJ stone with mild hydronephrosis Laboratory investigations with elevated white count, urine glucose 500, lactic acid over threshold Lactic acid has reduced with hydration Will plan for placement tomorrow and subsequent ESWL after resolution of mild metabolic derangement [facility] Past Medical History Medical History (Updated 10/30/20 @ 15:44 by Grant Zabala MD) Arthritis Asthma Bilateral post-traumatic osteoarthritis of knee Depression Dyslipidemia GERD (gastroesophageal reflux disease) History of allergic rhinitis History of headache Hx of low back pain Hypertension Insomnia Obesity Right knee pain Family History Family History Father No problems noted. Mother No problems noted. Maternal Grandmother Throat cancer Sister In good health Brother In good health Surgical History Surgical History History of open reduction and internal fixation (ORIF) procedure Social History Social History Household Members: Family Housing: Apartment Are you a primary continuum of care manager to a significant other at home: No Do you presently have visiting nurse or other home services: No Alcohol intake: former Patient Tobacco Use Status: Never used Tobacco Use of substances other than those prescribed or required for medical reasons: No Currently Displaying Signs/Symptoms of Drug Intoxication Withdrawal: No Have you been hit, kicked, punched, or otherwise hurt by someone within the past year? 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 Allergies Allergy/AdvReac Type Severity Reaction Status Date / Time No Known Allergies Allergy Verified 06/28/20 08:09 Active Medications: Current Medications Generic Name Dose Route Start Last Admin Trade Name Freq PRN Reason Stop Dose Admin Acetaminophen 650 mg 10/29/20 20:17 10/30/20 09:31 Acetaminophen 325 Mg Tablet PO 650 mg Q6H PRN Administration Pain, Mild (Pain Scale 1-3) Albuterol Sulfate 2.5 mg 10/29/20 20:21 Albuterol Sulfate (0.083%) 2.5 Mg/3 Ml Vial.Neb INHALE TID PRN bronchospasm Escitalopram Oxalate 10 mg 10/30/20 09:00 10/30/20 09:31 Escitalopram Oxalate 10 Mg Tablet PO 10 mg DAILY NETTE Administration Famotidine 20 mg 10/29/20 21:00 10/30/20 09:31 Famotidine 20 Mg Tablet PO 20 mg BID NETTE Administration Hydromorphone HCl 0.5 mg 10/29/20 20:17 Hydromorphone Hcl 0.5 Mg/0.5 Ml Syringe SUBCUT Q6H PRN Pain, Severe (Pain Scale 7-10) Dextrose/Sodium Chloride 1,000 mls @ 50 mls/hr 10/29/20 20:30 10/29/20 20:31 D51/2ns IVCONT 50 mls/hr .Q20H NETTE Administration Insulin Human Lispro 0 unit 10/30/20 16:30 Insulin Lispro 100 Unit/Ml 3 Ml Vial SUBCUT QIDACHS [facility] Protocol Levofloxacin 500 mg 10/30/20 20:00 Levofloxacin 500 Mg Tablet PO Q24H NETTE Magnesium Hydroxide 30 ml 10/29/20 20:17 Milk Of Magnesia 30 Ml Oral.Susp PO DAILY PRN Constipation Ondansetron HCl 4 mg 10/29/20 20:17 Ondansetron Hcl 4 Mg/2 Ml Vial IVPUSH Q8H PRN Nausea and Vomiting Pharmacy Consult 1 each 10/29/20 17:37 Consult Rx Perform Med Rec MISCELLANE ONCE PRN Consult order Senna 17.2 mg 10/29/20 20:17 Sennosides 8.6 Mg Tablet PO BEDTIME PRN Constipation Sodium Chloride 3 ml 10/30/20 00:00 10/30/20 09:06 0.9 % Sodium Chloride Flush 3 Ml Syringe IVFLUSH Not Given QSHIFT NETTE Topiramate 25 mg 10/29/20 21:00 10/30/20 09:31 Topiramate 25 Mg Tablet PO 25 mg BID [facility] Administration Home Medications Medication Instructions Recorded Confirmed Last Taken Type topiramate 25 mg PO BID 10/29/20 10/29/20 Unknown History tramadol 50 mg PO Q8H PRN 10/29/20 10/29/20 Unknown History Physical Exam Vital Signs: Vital Signs: Last Vital Signs Temp 97.8 F 10/30/20 15:11 Pulse 77 10/30/20 15:11 Resp 16 10/30/20 15:11 BP 174/77 H 10/30/20 15:11 Pulse Ox 94 10/30/20 15:11 Body Mass Index 47.5 Const: General: cooperative, healthy appearing, comfortable and no acute distress Nutritional Appearance: average body habitus Orientation/consciousness: oriented to person, oriented to place and oriented to time Eyes: General: appearance normal, both eyes and all related structures Chest: Chest palpation & inspection: normal inspection of the chest Resp: Effort & Inspection: normal respiratory effort Cardio: Rate: regular rate GI: Inspection: Yes normal to inspection Skin: Hair: normal Neuro: General: oriented to person, oriented to place and oriented to time Extrem: General: Yes normal to inspection Results Labs Result diagrams: 10/30/20 06:21 10/30/20 06:21 Labs: Abnormal lab results 10/29/20 10/29/20 10/29/20 Range/Units 17:18 17:18 18:08 WBC 15.0 H (4.8-10.8) X10*3/uL MCV 79.4 L (80-98) fL MCH 25.1 L (27.0-33.0) pg Immature Gran % (Auto) 0.5 H (0.0-0.4) % Neut % (Auto) 88.7 H (45-73) % Lymph % (Auto) 6.4 L (20-40) % Lymph # (Auto) 1.0 L (1.2-4.9) X10*3/uL Abs Immat Gran (auto) 0.07 H (0.00-0.03) X10*3/uL Absolute Neuts (auto) 13.4 H (2.0-8.3) X10*3/uL PT 14.0 H (10.8-13.0) SEC INR 1.2 H (0.9-1.1) Random Glucose 278 H (60-115) mg/dL Lactic Acid (0.5-2.0) mmol/L Lactic Acid Fup @ 2Hr (0.5-2.0) mmol/L Lactic Acid Fup @ 4Hr (0.5-2.0) mmol/L Alkaline Phosphatase 133 H (39-117) U/L Urine Glucose (UA) (NEG) MG/DL Urine Blood (NEG) Urine RBC (0) /HPF Urine Opiates Screen (Not Detect) Urine Cocaine Screen (Not Detect) 10/29/20 10/29/20 10/29/20 Range/Units 18:08 18:41 18:41 WBC (4.8-10.8) X10*3/uL MCV (80-98) fL MCH (27.0-33.0) pg Immature Gran % (Auto) (0.0-0.4) % Neut % (Auto) (45-73) % Lymph % (Auto) (20-40) % Lymph # (Auto) (1.2-4.9) X10*3/uL Abs Immat Gran (auto) (0.00-0.03) X10*3/uL Absolute Neuts (auto) (2.0-8.3) X10*3/uL PT (10.8-13.0) SEC INR (0.9-1.1) Random Glucose (60-115) mg/dL Lactic Acid 2.3 H* (0.5-2.0) mmol/L Lactic Acid Fup @ 2Hr (0.5-2.0) mmol/L Lactic Acid Fup @ 4Hr (0.5-2.0) mmol/L Alkaline Phosphatase (39-117) U/L Urine Glucose (UA) 500 H (NEG) MG/DL Urine Blood 1+ H (NEG) Urine RBC 10-14 H (0) /HPF Urine Opiates Screen POSITIVE H (Not Detect) Urine Cocaine Screen POSITIVE H (Not Detect) 10/29/20 10/30/20 10/30/20 Range/Units 22:24 00:38 06:21 WBC 14.3 H (4.8-10.8) X10*3/uL MCV 79.6 L (80-98) fL MCH 25.1 L (27.0-33.0) pg Immature Gran % (Auto) (0.0-0.4) % Neut % (Auto) 85.0 H (45-73) % Lymph % (Auto) 8.4 L (20-40) % Lymph # (Auto) (1.2-4.9) X10*3/uL Abs Immat Gran (auto) 0.06 H (0.00-0.03) X10*3/uL Absolute Neuts (auto) 12.2 H (2.0-8.3) X10*3/uL PT (10.8-13.0) SEC INR (0.9-1.1) Random Glucose (60-115) mg/dL Lactic Acid (0.5-2.0) mmol/L Lactic Acid Fup @ 2Hr 2.9 H* (0.5-2.0) mmol/L Lactic Acid Fup @ 4Hr 2.5 H* (0.5-2.0) mmol/L Alkaline Phosphatase (39-117) U/L Urine Glucose (UA) (NEG) MG/DL Urine Blood (NEG) Urine RBC (0) /HPF Urine Opiates Screen (Not Detect) Urine Cocaine Screen (Not Detect) 10/30/20 Range/Units 06:21 WBC (4.8-10.8) X10*3/uL MCV (80-98) fL MCH (27.0-33.0) pg Immature Gran % (Auto) (0.0-0.4) % Neut % (Auto) (45-73) % Lymph % (Auto) (20-40) % Lymph # (Auto) (1.2-4.9) X10*3/uL Abs Immat Gran (auto) (0.00-0.03) X10*3/uL Absolute Neuts (auto) (2.0-8.3) X10*3/uL PT (10.8-13.0) SEC INR (0.9-1.1) Random Glucose 204 H (60-115) mg/dL Lactic Acid (0.5-2.0) mmol/L Lactic Acid Fup @ 2Hr (0.5-2.0) mmol/L Lactic Acid Fup @ 4Hr (0.5-2.0) mmol/L Alkaline Phosphatase (39-117) U/L Urine Glucose (UA) (NEG) MG/DL Urine Blood (NEG) Urine RBC (0) /HPF Urine Opiates Screen (Not Detect) Urine Cocaine Screen (Not Detect) Short CBC 10/29/20 10/30/20 Range/Units 17:18 06:21 WBC 15.0 H 14.3 H (4.8-10.8) X10*3/uL Hgb 12.7 12.3 (12.0-16.0) g/dl Hct 40.1 39.0 (37-47) % Plt Count 293 300 (160-400) X10*3/uL BMP 10/29/20 10/30/20 17:18 06:21 Sodium 139 139 Potassium 3.9 3.8 Chloride 102 103 Carbon Dioxide 25 26 BUN 9 13 Creatinine 0.79 0.92 Calcium 9.3 9.2 Liver Function 10/29/20 Range/Units 17:18 Total Bilirubin 0.7 (0.0-1.0) mg/dL Direct Bilirubin 0.3 (0.0-0.5) mg/dL AST 27 (5-31) U/L ALT 24 (0-31) U/L Alkaline Phosphatase 133 H (39-117) U/L Albumin 4.0 (3.5-5.0) g/dL Urine 10/29/20 Range/Units 18:41 Urine Color YELLOW Urine Appearance CLEAR Urine pH 6.5 (5.0-8.0) Ur Specific [place] 1.015 (1.005-1.025) Urine Protein NEG (NEG-TRACE) MG/DL Urine Glucose (UA) 500 H (NEG) MG/DL All other labs normal. Assessment and Plan (1) Hydronephrosis with renal calculous obstruction: Status: Acute (2) Lactic acidosis due to diabetes mellitus: Status: Acute Plan for cystoscopy, left retrograde, left stent placement tomorrow morning NPO after midnight Procedures Date of Service Date of Service: 10/30/20
[2020-10-30 16:08] LABS: Glucose, Whole Blood 158 mg/dL (60-115)
[2020-10-30] MEDS: Insulin Lispro 100 UNIT/ML 3 ML VIAL SUBCUT (16:33)
[2020-10-30] MEDS: Dextrose 5 % and 0.45 % NaCl 1,000 ML 50 ML IVCONT (16:34)
[2020-10-30] MEDS: levoFLOXacin 500 MG TABLET PO (20:04)
[2020-10-30 20:15] LABS: Glucose, Whole Blood 150 mg/dL (60-115)
[2020-10-31] VITALS (12 sets, daily range): BP systolic 133–179; BP diastolic 63–93; PULSE 68–106; RESP 16–20; TEMP 36.1–36.9; O2SAT 92–98
[2020-10-31 05:10] LABS: Glucose, Whole Blood 174 mg/dL (60-115)
[2020-10-31 07:01] LABS: Anion Gap 12 (12-20); Blood Urea Nitrogen 14 mg/dL (9-16); Calcium 9.3 mg/dL (8.4-10.2); Carbon Dioxide 28 mmol/L (22-29); Chloride 105 mmol/L (96-108); Estimated Glomerular Filt Rate > 60; Glucose Fasting 166 mg/dL (60-99); Potassium 3.3 mmol/L (3.3-5.1); Sodium 142 mmol/L (135-145)
[2020-10-31 07:15] LABS: Glucose, Whole Blood 159 mg/dL (60-115)
[2020-10-31 07:16] LABS: Hematocrit 38.7 % (37-47); Hemoglobin 12.2 g/dl (12.0-16.0); Mean Corpuscular HGB Conc 31.5 g/dl (31.0-35.0); Mean Corpuscular Hemoglobin 25.1 pg (27.0-33.0); Mean Corpuscular Volume 79.5 fL (80-98); Mean Platelet Volume 10.2 fL (9.4-12.3); Platelet Count 293 X10*3/uL (160-400); Red Blood Count 4.87 X10*6/uL (4.20-5.50); Red Cell Distribution Width 15.1 % (11.0-16.0); White Blood Count 11.6 X10*3/uL (4.8-10.8)
[2020-10-31] MEDS: Famotidine 20 MG TABLET PO ×2 (08:10→19:52)
[2020-10-31] MEDS: Escitalopram Oxalate 10 MG TABLET PO (08:10)
[2020-10-31] MEDS: Topiramate 25 MG TABLET PO ×2 (08:10→19:52)
--- NOTE | 2020-10-31 09:21 | HO.ANESPROP2 ---
[facility] Active Problems Active Problems: All Active Problems (Updated 10/30/20 @ 15:44 by Grant Zabala MD) Lactic acidosis due to diabetes mellitus (Acute) Hydronephrosis with renal calculous obstruction (Acute) Bilateral post-traumatic osteoarthritis of knee (Acute) Hypertension (Acute) GERD (gastroesophageal reflux disease) (Acute) Dyslipidemia (Acute) Right knee pain (Acute) Past Medical History Medical History Arthritis Asthma Bilateral post-traumatic osteoarthritis of knee Depression Dyslipidemia GERD (gastroesophageal reflux disease) History of allergic rhinitis History of headache Hx of low back pain Hypertension Insomnia Obesity Right knee pain Family History Family History Father No problems noted. Mother No problems noted. Maternal Grandmother Throat cancer Sister In good health Brother In good health Surgical History Surgical History History of open reduction and internal fixation (ORIF) procedure Social History Social History Household Members: Family Housing: Apartment Are you a primary care professional to a significant other at home: No Do you presently have visiting nurse or other home services: No Alcohol intake: former Patient Tobacco Use Status: Never used Tobacco Use of substances other than those prescribed or required for medical reasons: No Currently Displaying Signs/Symptoms of Drug Intoxication Withdrawal: No Have you been hit, kicked, punched, or otherwise hurt by someone within the past year? If so, by whom?: No Do you feel safe in your current relationship?: Yes Is there a partner from a previous relationship who is making you feel unsafe now?: No Are you made to feel afraid or neglected: No Advance Directives: No Advance Directives Information Provided: Yes Do you have thoughts of harming others: None Do you have a plan to hurt others: No Plan Recently lost weight without trying: No Nutrition Risks: No Nutritional Risk Patient : No : No Poor oral hygiene: No Current occupational status: disabled Current occupation: right handed Meds Allergies Allergy/AdvReac Type Severity Reaction Status Date / Time No Known Allergies Allergy Verified 06/28/20 08:09 Active Medications: Current Medications Generic Name Dose Route Start Last Admin Trade Name Freq PRN Reason Stop Dose Admin Acetaminophen 650 mg 10/29/20 20:17 10/30/20 09:31 Acetaminophen 325 Mg Tablet PO 650 mg Q6H PRN Administration Pain, Mild (Pain Scale 1-3) Albuterol Sulfate 2.5 mg 10/29/20 20:21 Albuterol Sulfate (0.083%) 2.5 Mg/3 Ml Vial.Neb INHALE TID PRN bronchospasm Escitalopram Oxalate 10 mg 10/30/20 09:00 10/31/20 08:10 Escitalopram Oxalate 10 Mg Tablet PO 10 mg DAILY NETTE Administration Famotidine 20 mg 10/29/20 21:00 10/31/20 08:10 Famotidine 20 Mg Tablet PO 20 mg BID NETTE Administration Hydromorphone HCl 0.5 mg 10/29/20 20:17 Hydromorphone Hcl 0.5 Mg/0.5 Ml Syringe SUBCUT Q6H PRN Pain, Severe (Pain Scale 7-10) Dextrose/Sodium Chloride 1,000 mls @ 50 mls/hr 10/29/20 20:30 10/30/20 16:34 D51/2ns IVCONT 50 mls/hr .Q20H [facility] Administration Insulin Human Lispro 0 unit 10/30/20 16:30 10/31/20 07:42 Insulin Lispro 100 Unit/Ml 3 Ml Vial SUBCUT Not Given QIDACHS [facility] Protocol Levofloxacin 500 mg 10/30/20 20:00 10/30/20 20:04 Levofloxacin 500 Mg Tablet PO 500 mg Q24H [facility] Administration Magnesium Hydroxide 30 ml 10/29/20 20:17 Milk Of Magnesia 30 Ml Oral.Susp PO DAILY PRN Constipation Ondansetron HCl 4 mg 10/29/20 20:17 Ondansetron Hcl 4 Mg/2 Ml Vial IVPUSH Q8H PRN Nausea and Vomiting Pharmacy Consult 1 each 10/29/20 17:37 Consult Rx Perform Med Rec MISCELLANE ONCE PRN Consult order Senna 17.2 mg 10/29/20 20:17 Sennosides 8.6 Mg Tablet PO BEDTIME PRN Constipation Sodium Chloride 3 ml 10/30/20 00:00 10/31/20 08:09 0.9 % Sodium Chloride Flush 3 Ml Syringe [facility] Top[facility] 25 mg 05/28/21 21:00 10/31/20 08:10 Topiramate 25 Mg Tablet PO 25 mg BID [facility] Administration Home Medications Medication Instructions Recorded Confirmed Last Taken Type topiramate 25 mg PO BID 10/29/20 10/29/20 Unknown History tramadol 50 mg PO Q8H PRN 10/29/20 10/29/20 Unknown History Exam Exam Date and Time: October 31, 2020 0921 Height,Weight and Vital Signs: Height 5 ft 3 in Weight 121.563 kg Last Vital Signs Temp 97.2 F 10/31/20 07:38 Pulse 70 10/31/20 07:38 Resp 20 10/31/20 07:38 BP 133/63 10/31/20 07:38 Pulse Ox 98 10/31/20 07:38 Pertinent Lab Results Pertinent Lab Results: Laboratory Tests 10/29/20 10/29/20 10/29/20 17:18 17:18 17:18 WBC 15.0 H RBC 5.05 Hgb 12.7 Hct 40.1 MCV 79.4 L MCH 25.1 L MCHC 31.7 RDW 14.9 Plt Count 293 MPV 9.9 Immature Gran % (Auto) 0.5 H Neut % (Auto) 88.7 H Lymph % (Auto) 6.4 L [place] % (Auto) 4.1 Eos % (Auto) 0.1 Baso % (Auto) 0.2 Lymph # (Auto) 1.0 L [place] # (Auto) 0.6 Eos # (Auto) 0.0 Baso # (Auto) 0.0 Abs Immat Gran (auto) 0.07 H Absolute Neuts (auto) 13.4 H Absolute Nucleated RBC 0.000 Nucleated RBC % (auto) 0.0 PT INR APTT Hold Blue Top SEE NOTE Sodium 139 Potassium 3.9 Chloride 102 Carbon Dioxide 25 Anion Gap 16 BUN 9 Creatinine 0.79 Estim Creat Clear Calc 96.9 Estimated GFR > 60 POC Glucose Random Glucose 278 H Fasting Glucose Estimat Average Glucose Hemoglobin A1c % Lactic Acid Lactic Acid Fup @ 2Hr Lactic Acid Fup @ 4Hr Calcium 9.3 Magnesium 1.8 Total Bilirubin 0.7 Direct Bilirubin 0.3 AST 27 ALT 24 Alkaline Phosphatase 133 H Total Protein 8.0 Albumin 4.0 Lipase 23 Urine Color Urine Appearance Urine pH Ur Specific [place] Urine Protein Urine Glucose (UA) Urine Ketones Urine Blood Urine Nitrite Ur Leukocyte Esterase Urine RBC Urine WBC Ur Squamous Epith Cells Urine Bacteria Urine Opiates Screen Ur Barbiturates Screen Ur Phencyclidine Scrn Ur Amphetamines Screen U Benzodiazepines Scrn Urine Cocaine Screen U Marijuana (THC) Screen COVID-19 (ANNY) COVID-19 [employer] 10/29/20 10/29/20 10/29/20 18:08 18:08 18:41 WBC RBC Hgb Hct MCV MCH MCHC RDW Plt Count MPV Immature Gran % (Auto) Neut % (Auto) Lymph % (Auto) [place] % (Auto) Eos % (Auto) Baso % (Auto) Lymph # (Auto) [place] # (Auto) Eos # (Auto) Baso # (Auto) Abs Immat Gran (auto) Absolute Neuts (auto) Absolute Nucleated RBC Nucleated RBC % (auto) PT 14.0 H INR 1.2 H APTT 29.9 Hold Blue Top Sodium Potassium Chloride Carbon Dioxide Anion Gap BUN Creatinine Estim Creat Clear Calc Estimated GFR POC Glucose Random Glucose Fasting Glucose Estimat Average Glucose Hemoglobin A1c % Lactic Acid 2.3 H* Lactic Acid Fup @ 2Hr Lactic Acid Fup @ 4Hr Calcium Magnesium Total Bilirubin Direct Bilirubin AST ALT Alkaline Phosphatase Total Protein Albumin Lipase Urine Color YELLOW Urine Appearance CLEAR Urine pH 6.5 Ur Specific [place] 1.015 Urine Protein NEG Urine Glucose (UA) 500 H Urine Ketones 40 Urine Blood 1+ H Urine Nitrite NEG Ur Leukocyte Esterase NEG Urine RBC 10-14 H Urine WBC 0-2 Ur Squamous Epith Cells 1+ Urine Bacteria NONE Urine Opiates Screen Ur Barbiturates Screen Ur Phencyclidine Scrn Ur Amphetamines Screen U Benzodiazepines Scrn Urine Cocaine Screen U Marijuana (THC) Screen COVID-19 (ANNY) COVID-19 Clin [employer] 10/29/20 10/29/20 10/29/20 18:41 22:18 22:24 WBC RBC Hgb Hct MCV MCH MCHC RDW Plt Count MPV Immature Gran % (Auto) Neut % (Auto) Lymph % (Auto) [place] % (Auto) Eos % (Auto) Baso % (Auto) Lymph # (Auto) [place] # (Auto) Eos # (Auto) Baso # (Auto) Abs Immat Gran (auto) Absolute Neuts (auto) Absolute Nucleated RBC Nucleated RBC % (auto) PT INR APTT Hold Blue Top Sodium Potassium Chloride Carbon Dioxide Anion Gap BUN Creatinine Estim Creat Clear Calc Estimated GFR POC Glucose Random Glucose Fasting Glucose Estimat Average Glucose Hemoglobin A1c % Lactic Acid Lactic Acid Fup @ 2Hr 2.9 H* Lactic Acid Fup @ 4Hr Calcium Magnesium Total Bilirubin Direct Bilirubin AST ALT Alkaline Phosphatase Total Protein Albumin Lipase Urine Color Urine Appearance Urine pH Ur Specific [place] Urine Protein Urine Glucose (UA) Urine Ketones Urine Blood Urine Nitrite Ur Leukocyte Esterase Urine RBC Urine WBC Ur Squamous Epith Cells Urine Bacteria Urine Opiates Screen POSITIVE H Ur Barbiturates Screen Not Detected Ur Phencyclidine Scrn Not Detected Ur Amphetamines Screen Not Detected U Benzodiazepines Scrn Not Detected Urine Cocaine Screen POSITIVE H U Marijuana (THC) Screen Not Detected COVID-19 (ANNY) Negative COVID-19 Clin Com See Note 10/30/20 10/30/20 10/30/20 00:38 06:21 06:21 WBC 14.3 H RBC 4.90 Hgb 12.3 Hct 39.0 MCV 79.6 L MCH 25.1 L MCHC 31.5 RDW 15.0 Plt Count 300 MPV 10.2 Immature Gran % (Auto) 0.4 Neut % (Auto) 85.0 H Lymph % (Auto) 8.4 L [place] % (Auto) 6.1 Eos % (Auto) 0.0 Baso % (Auto) 0.1 Lymph # (Auto) 1.2 [place] # (Auto) 0.9 Eos # (Auto) 0.0 Baso # (Auto) 0.0 Abs Immat Gran (auto) 0.06 H Absolute Neuts (auto) 12.2 H Absolute Nucleated RBC 0.000 Nucleated RBC % (auto) 0.0 PT INR APTT Hold Blue Top Sodium 139 Potassium 3.8 Chloride 103 Carbon Dioxide 26 Anion Gap 14 BUN 13 Creatinine 0.92 Estim Creat Clear Calc 83.2 Estimated GFR > 60 POC Glucose Random Glucose 204 H Fasting Glucose Estimat Average Glucose Hemoglobin A1c % Lactic Acid Lactic Acid Fup @ 2Hr Lactic Acid Fup @ 4Hr 2.5 H* Calcium 9.2 Magnesium Total Bilirubin Direct Bilirubin AST ALT Alkaline Phosphatase Total Protein Albumin Lipase Urine Color Urine Appearance Urine pH Ur Specific [place] Urine Protein Urine Glucose (UA) Urine Ketones Urine Blood Urine Nitrite Ur Leukocyte Esterase Urine RBC Urine WBC Ur Squamous Epith Cells Urine Bacteria Urine Opiates Screen Ur Barbiturates Screen Ur Phencyclidine Scrn Ur Amphetamines Screen U Benzodiazepines Scrn Urine Cocaine Screen U Marijuana (THC) Screen COVID-19 (ANNY) COVID-19 [employer] 10/30/20 10/30/20 10/30/20 06:21 06:21 15:58 WBC RBC Hgb Hct MCV MCH MCHC RDW Plt Count MPV Immature Gran % (Auto) Neut % (Auto) Lymph % (Auto) [place] % (Auto) Eos % (Auto) Baso % (Auto) Lymph # (Auto) [place] # (Auto) Eos # (Auto) Baso # (Auto) Abs Immat Gran (auto) Absolute Neuts (auto) Absolute Nucleated RBC Nucleated RBC % (auto) PT INR APTT Hold Blue Top Sodium Potassium Chloride Carbon Dioxide Anion Gap BUN Creatinine Estim Creat Clear Calc Estimated GFR POC Glucose 158 H Random Glucose Fasting Glucose Estimat Average Glucose 194 Hemoglobin A1c % 8.4 Lactic Acid 1.2 Lactic Acid Fup @ 2Hr Lactic Acid Fup @ 4Hr Calcium Magnesium Total Bilirubin Direct Bilirubin AST ALT Alkaline Phosphatase Total Protein Albumin Lipase Urine Color Urine Appearance Urine pH Ur Specific [place] Urine Protein Urine Glucose (UA) Urine Ketones Urine Blood Urine Nitrite Ur Leukocyte Esterase Urine RBC Urine WBC Ur Squamous Epith Cells Urine Bacteria Urine Opiates Screen Ur Barbiturates Screen Ur Phencyclidine Scrn Ur Amphetamines Screen U Benzodiazepines Scrn Urine Cocaine Screen U Marijuana (THC) Screen COVID-19 (ANNY) COVID-19 [employer] 10/30/20 10/31/20 10/31/20 20:11 05:05 06:05 WBC 11.6 H RBC 4.87 Hgb 12.2 Hct 38.7 MCV 79.5 L MCH 25.1 L MCHC 31.5 RDW 15.1 Plt Count 293 MPV 10.2 Immature Gran % (Auto) Neut % (Auto) Lymph % (Auto) [place] % (Auto) Eos % (Auto) Baso % (Auto) Lymph # (Auto) [place] # (Auto) Eos # (Auto) Baso # (Auto) Abs Immat Gran (auto) Absolute Neuts (auto) Absolute Nucleated RBC 0.000 Nucleated RBC % (auto) 0.0 PT INR APTT Hold Blue Top Sodium Potassium Chloride Carbon Dioxide Anion Gap BUN Creatinine Estim Creat Clear Calc Estimated GFR POC Glucose 150 H 174 H Random Glucose Fasting Glucose Estimat Average Glucose Hemoglobin A1c % Lactic Acid Lactic Acid Fup @ 2Hr Lactic Acid Fup @ 4Hr Calcium Magnesium Total Bilirubin Direct Bilirubin AST ALT Alkaline Phosphatase Total Protein Albumin Lipase Urine Color Urine Appearance Urine pH Ur Specific [place] Urine Protein Urine Glucose (UA) Urine Ketones Urine Blood Urine Nitrite Ur Leukocyte Esterase Urine RBC Urine WBC Ur Squamous Epith Cells Urine Bacteria Urine Opiates Screen Ur Barbiturates Screen Ur Phencyclidine Scrn Ur Amphetamines Screen U Benzodiazepines Scrn Urine Cocaine Screen U Marijuana (THC) Screen COVID-19 (ANNY) COVID-19 Clin Com 10/31/20 10/31/20 06:05 06:58 WBC RBC Hgb Hct MCV MCH MCHC RDW Plt Count MPV Immature Gran % (Auto) Neut % (Auto) Lymph % (Auto) [place] % (Auto) Eos % (Auto) Baso % (Auto) Lymph # (Auto) [place] # (Auto) Eos # (Auto) Baso # (Auto) Abs Immat Gran (auto) Absolute Neuts (auto) Absolute Nucleated RBC Nucleated RBC % (auto) PT INR APTT Hold Blue Top Sodium 142 Potassium 3.3 Chloride 105 Carbon Dioxide 28 Anion Gap 12 BUN 14 Creatinine 0.87 Estim Creat Clear Calc 88.0 Estimated GFR > 60 POC Glucose 159 H Random Glucose Fasting Glucose 166 H Estimat Average Glucose Hemoglobin A1c % Lactic Acid Lactic Acid Fup @ 2Hr Lactic Acid Fup @ 4Hr Calcium 9.3 Magnesium Total Bilirubin Direct Bilirubin AST ALT Alkaline Phosphatase Total Protein Albumin Lipase Urine Color Urine Appearance Urine pH Ur Specific [place] Urine Protein Urine Glucose (UA) Urine Ketones Urine Blood Urine Nitrite Ur Leukocyte Esterase Urine RBC Urine WBC Ur Squamous Epith Cells Urine Bacteria Urine Opiates Screen Ur Barbiturates Screen Ur Phencyclidine Scrn Ur Amphetamines Screen U Benzodiazepines Scrn Urine Cocaine Screen U Marijuana (THC) Screen COVID-19 (ANNY) COVID-19 Clin Com Airway Mallampati Class: III TM Dist: >3cm Denture: Upper Loose/Missing/Broken Teeth: Yes and Upper Heart: RRR Lungs: CTA
--- NOTE | 2020-10-31 10:04 | HO.PM.IMPN ---
Subjective Subjective Date of Service: 10/31/20 Interval History: flank pain Cardiovascular Cardiovascular: Reports no additional cardiovascular complaints Gastrointestinal Gastrointestinal: Reports no additional gastrointestinal complaints Physical Exam Vital Signs: Vital Signs: Last Vital Signs Temp 97.2 F 10/31/20 07:38 Pulse 70 10/31/20 07:38 Resp 20 10/31/20 07:38 BP 133/63 10/31/20 07:38 Pulse Ox 98 10/31/20 07:38 Body Mass Index 47.5 General: AO X 3, no acute distress Resp: CTA bilateral CVS: S1,S2,RRR GI: soft, non tender, non distended Neuro: motor grossly intact Psych: appropriate affect Objective Data Current Medications Generic Name Dose Route Start Last Admin Trade Name Freq PRN Reason Stop Dose Admin Acetaminophen 650 mg 10/29/20 20:17 10/30/20 09:31 Acetaminophen 325 Mg Tablet PO 650 mg Q6H PRN Administration Pain, Mild (Pain Scale 1-3) Albuterol Sulfate 2.5 mg 10/29/20 20:21 Albuterol Sulfate (0.083%) 2.5 Mg/3 Ml Vial.Neb INHALE TID PRN bronchospasm Escitalopram Oxalate 10 mg 10/30/20 09:00 10/31/20 08:10 Escitalopram Oxalate 10 Mg Tablet PO 10 mg DAILY NETTE Administration Famotidine 20 mg 10/29/20 21:00 10/31/20 08:10 Famotidine 20 Mg Tablet PO 20 mg BID NETTE Administration Fentanyl 25 mcg 10/31/20 09:29 Fentanyl Citrate/Pf 100 Mcg/2 Ml Vial IVPUSH Q5M PRN Pain, Moderate (Pain Scale 4-6 Hydromorphone HCl 0.5 mg 10/29/20 20:17 Hydromorphone Hcl 0.5 Mg/0.5 Ml Syringe SUBCUT Q6H PRN Pain, Severe (Pain Scale 7-10) Dextrose/Sodium Chloride 1,000 mls @ 50 mls/hr 10/29/20 20:30 10/30/20 16:34 D51/2ns IVCONT 50 mls/hr .Q20H NETTE Administration Insulin Human Lispro 0 unit 10/30/20 16:30 10/31/20 07:42 Insulin Lispro 100 Unit/Ml 3 Ml Vial SUBCUT Not Given QIDACHS NETTE Protocol Levofloxacin 500 mg 10/30/20 20:00 10/30/20 20:04 Levofloxacin 500 Mg Tablet PO 500 mg Q24H NETTE Administration Magnesium Hydroxide 30 ml 10/29/20 20:17 Milk Of Magnesia 30 Ml Oral.Susp PO DAILY PRN Constipation Ondansetron HCl 4 mg 10/29/20 20:17 Ondansetron Hcl 4 Mg/2 Ml Vial IVPUSH Q8H PRN Nausea and Vomiting Ondansetron HCl 4 mg 10/31/20 09:29 Ondansetron Hcl 4 Mg/2 Ml Vial IVPUSH ONCE PRN Nausea and Vomiting Oxycodone HCl 5 mg 10/31/20 09:29 Oxycodone Hcl Immed Release 5 Mg Tablet PO ONCE PRN Pain, Severe (Pain Scale 7-10) Pharmacy Consult 1 each 10/29/20 17:37 Consult Rx Perform Med Rec MISCELLANE ONCE PRN Consult order Senna 17.2 mg 10/29/20 20:17 Sennosides 8.6 Mg Tablet PO BEDTIME PRN Constipation Sodium Chloride 3 ml 10/30/20 00:00 10/31/20 08:09 0.9 % Sodium Chloride Flush 3 Ml Syringe IVFLUSH Not Given QSHIFT NETTE Topiramate 25 mg 10/29/20 21:00 10/31/20 08:10 Topiramate 25 Mg Tablet PO 25 mg BID NETTE Administration Labs CBC & Chem 7: 10/31/20 06:05 10/31/20 06:05 Microbiology Microbiology Results: Microbiology 10/29/20 18:22 Blood - Venous Blood Culture - Preliminary No growth after 24 hours. 10/29/20 18:08 Blood - Venous Blood Culture - Preliminary No growth after 24 hours. Assessment and Plan (1) Hydronephrosis with renal calculous obstruction: Status: Acute Assessment and Plan: 60-year-old female presented with left flank pain found to have a 4 x 6 mm left UPJ stone Obstructing left UPJ stone [id number] hydronephrosis plan for cysto today empiric levaquin Hepatic steatosis Likely ESPINO Weight loss, outpatient follow-up DM normally diet controlled, patient not aware of previous diagnosis, but has had elvated a1cs in medical record a1c now 8.4 likely metformin on dc insulin for now
--- NOTE | 2020-10-31 11:01 | W.PM.OPN ---
Operative Note Operative Note Date of Service: 10/31/20 Narrative: PreOperative Diagnosis: Left Proximal ureteric stone Post Operative Diagnosis: Same Procedure: Cystoscopy, left retrograde, left stent placement Surgeon: Dr Grant Zabala Anesthesia: Sedation Indications for procedure: Left proximal ureteric stone with associated nausea and vomiting. Mild elevation of lactate level. Procedure: After informed consent was verified the patient was brought to the operating room and placed in a supine position. Anesthesia was administered per protocol. The patient was placed in a modified dorsal lithotomy position and prepped and draped in sterile fashion. Safety pause time-out was performed. Antibiotics have been given. Twenty-two [place] cystoscope inserted per urethra. Bladder was normal. Left ureteric orifice cannulated and retrograde examination performed. Filling defect noted at left UPJ. Sensor guidewire placed. Six [place] by 24 cm double-J ureteric stent placed. Upon inspection the stent migrated up the ureter. The cystoscope was removed. A rigid ureteral scope was placed. The scope was advanced into the ureteric orifice. The distal end of the stent was seen. This was grasped with a Zero tip basket. The stent was removed. A 22 [place] cystoscope was replaced. The Sensor guidewire was replaced into the ureteric orifice. A variable length [place] double-J ureteric catheter was placed. Good coil was seen in the renal pelvis and again in the bladder. Patient tolerated the procedure well was extubated in operating room transferred in stable condition to the recovery area Pathology: Drains: Six [place] by variable length double-J stent
[2020-10-31 11:14] LABS: Glucose, Whole Blood 168 mg/dL (60-115)
[2020-10-31] MEDS: Phenazopyridine HCL 100 MG TABLET PO (12:00)
[2020-10-31] MEDS: Insulin Lispro 100 UNIT/ML 3 ML VIAL SUBCUT ×3 (12:01→21:35)
[2020-10-31] MEDS: HYDROmorphone HCl 0.5 MG/0.5 ML SYRINGE IV ×2 (13:01→19:51)
--- NOTE | 2020-10-31 14:15 | MHC.CM.PN ---
PT REPORTS SHE LIVES WITH HER DAUGHTER, FANNIE, AND IS INDEPENDENT WITH CARE AND MOBILITY. PT DENIES USING ANY DME OR HAVING ANY IN HOME SERVICES. PT CONFIRMS HER PCP IS HERNAN PERRY. A BLANK HCP AND INFORMATION WERE PROVIDED, PT WILL CONSIDER COMPLETING AT A LATER TIME. CURRENT DC PLAN IS HOME WITH NO SERVICES FAMILY WILL TRANSPORT
[2020-10-31] MEDS: oxyCODONE HCl Immed Release 5 MG TABLET PO (14:41)
[2020-10-31 16:20] LABS: Glucose, Whole Blood 256 mg/dL (60-115)
[2020-10-31] MEDS: Ketorolac Tromethamine 15 MG/ML VIAL IVPUSH ×2 (16:53→23:45)
[2020-10-31] MEDS: 0.9 % Sodium Chloride Flush 3 ML SYRINGE IVFLUSH (16:54)
[2020-10-31] MEDS: Sennosides 8.6 MG TABLET 17.2 MG PO (18:04)
[2020-10-31] MEDS: levoFLOXacin 500 MG TABLET PO (19:52)
[2020-10-31] MEDS: Acetaminophen 325 MG TABLET 650 MG PO (19:52)
[2020-10-31 21:20] LABS: Glucose, Whole Blood 162 mg/dL (60-115)
[2020-11-01] VITALS (8 sets, daily range): BP systolic 128–155; BP diastolic 58–76; PULSE 61–78; RESP 17–20; TEMP 36.6–37.1; O2SAT 93–98
--- NOTE | 2020-11-01 00:18 | PC.NURSE ---
Patient had a left ureteral stent placed earlier today. States she has been experiencing 10/10 left lower quadrant pain since the procedure. States it feels like someone is punching her. Also states she is having burning with urination. Urine is tea colored. Dr Reddy notified, a one time dose of IV Toradol 15mg was given, and a stat KUB xray was ordered. Patient on telemonitor, normal sinus rhythm. Call gonzalez within reach.
[2020-11-01] MEDS: HYDROmorphone HCl 0.5 MG/0.5 ML SYRINGE IV ×4 (03:16→20:46)
[2020-11-01] MEDS: 0.9 % Sodium Chloride Flush 3 ML SYRINGE IVFLUSH ×4 (07:32→20:47)
[2020-11-01 07:47] LABS: Glucose, Whole Blood 138 mg/dL (60-115)
[2020-11-01] MEDS: Milk of Magnesia 30 ML ORAL.SUSP PO (08:02)
[2020-11-01] MEDS: Sennosides 8.6 MG TABLET 17.2 MG PO (08:02)
[2020-11-01] MEDS: bisacodyL 10 MG SUPP.RECT PR (10:05)
[2020-11-01] MEDS: Escitalopram Oxalate 10 MG TABLET PO (10:06)
[2020-11-01] MEDS: Famotidine 20 MG TABLET PO ×2 (10:06→20:40)
[2020-11-01] MEDS: Topiramate 25 MG TABLET PO ×2 (10:06→20:41)
--- NOTE | 2020-11-01 10:33 | PC.NURSE ---
discussed pt's urine results. She states she does use cocaine frequently, she states she has depression and it helps her have energy. Discussed the risks of cardiac problems with cocaine use, discussed alternatives with pt. She states she did not know the risks and will follow with her PCP about side effects of depression meds. Pt resting quietly.
--- NOTE | 2020-11-01 10:45 | P.PNIM_ITS ---
Subjective Subjective Date of Service: 11/01/20 Interval History: severe pain, constipation Cardiovascular Cardiovascular: Reports no additional cardiovascular complaints Gastrointestinal Gastrointestinal: Reports no additional gastrointestinal complaints Physical Exam Vital Signs: Vital Signs: Last Vital Signs Temp 98.6 F 11/01/20 08:00 Pulse 61 11/01/20 08:00 Resp 20 11/01/20 08:00 BP 155/71 H 11/01/20 08:00 Pulse Ox 96 11/01/20 09:29 Body Mass Index 47.5 General: AO X 3, no acute distress Resp: CTA bilateral CVS: S1,S2,RRR GI: soft, non tender, non distended Neuro: motor grossly intact Psych: appropriate affect Objective Data Current Medications Generic Name Dose Route Start Last Admin Trade Name Freq PRN Reason Stop Dose Admin Acetaminophen 650 mg 10/29/20 20:17 10/31/20 19:52 Acetaminophen 325 Mg Tablet PO 650 mg Q6H PRN Administration Pain, Mild (Pain Scale 1-3) Albuterol Sulfate 2.5 mg 10/29/20 20:21 Albuterol Sulfate (0.083%) 2.5 Mg/3 Ml Vial.Neb INHALE TID PRN bronchospasm Escitalopram Oxalate 10 mg 10/30/20 09:00 11/01/20 10:06 Escitalopram Oxalate 10 Mg Tablet PO 10 mg DAILY NETTE Administration Famotidine 20 mg 10/29/20 21:00 11/01/20 10:06 Famotidine 20 Mg Tablet PO 20 mg BID NETTE Administration Hydromorphone HCl 0.5 mg 11/01/20 09:34 Hydromorphone Hcl 0.5 Mg/0.5 Ml Syringe IV Q4H PRN Pain, Severe (Pain Scale 7-10) Insulin Human Lispro 0 unit 10/30/20 16:30 11/01/20 08:00 Insulin Lispro 100 Unit/Ml 3 Ml Vial SUBCUT Not Given QIDACHS [facility] Protocol Levofloxacin 500 mg 10/30/20 20:00 10/31/20 19:52 Levofloxacin 500 Mg Tablet PO 500 mg Q24H NETTE Administration Magnesium Hydroxide 30 ml 10/29/20 20:17 11/01/20 08:02 Milk Of Magnesia 30 Ml Oral.Susp PO 30 ml DAILY PRN Administration Constipation Ondansetron HCl 4 mg 10/29/20 20:17 Ondansetron Hcl 4 Mg/2 Ml Vial IVPUSH Q8H PRN Nausea and Vomiting Ondansetron HCl 4 mg 10/31/20 09:29 Ondansetron Hcl 4 Mg/2 Ml Vial IVPUSH ONCE PRN Nausea and Vomiting Pharmacy Consult 1 each 10/29/20 17:37 Consult Rx Perform Med Rec MISCELLANE ONCE PRN Consult order Senna 17.2 mg 10/29/20 20:17 11/01/20 08:02 Sennosides 8.6 Mg Tablet PO 17.2 mg BEDTIME PRN Administration Constipation Sodium Chloride 3 ml 10/30/20 00:00 11/01/20 07:32 0.9 % Sodium Chloride Flush 3 Ml Syringe IVFLUSH 3 ml QSHIFT NETTE Administration Topiramate 25 mg 10/29/20 21:00 11/01/20 10:06 Topiramate 25 Mg Tablet PO 25 mg BID NETTE Administration Labs CBC & Chem 7: 10/31/20 06:05 10/31/20 06:05 Microbiology Microbiology Results: Microbiology 10/29/20 18:22 Blood - Venous Blood Culture - Preliminary No growth after 48 hours. 10/29/20 18:08 Blood - Venous Blood Culture - Preliminary No growth after 48 hours. Assessment and Plan (1) Hydronephrosis with renal calculous obstruction: Status: Acute Assessment and Plan: 60-year-old female presented with left flank pain found to have a 4 x 6 mm left UPJ stone Obstructing left UPJ stone [id number] hydronephrosis s/p stent 10/31 will dc levaquin, pain control constipation dulcolax pr Hepatic steatosis Likely ESPINO given cocaine use, will screen for hcv Weight loss, outpatient follow-up DM normally diet controlled, patient not aware of previous diagnosis, but has had elvated a1cs in medical record a1c now 8.4 likely metformin on dc insulin for now
[2020-11-01 11:27] LABS: Glucose, Whole Blood 148 mg/dL (60-115)
--- NOTE | 2020-11-01 13:04 | HO.POSTANES ---
Post Anesthesia Evaluation Post Anesthesia Evaluation Vital Signs: Vital Signs Temp Pulse Resp BP Pulse Ox 11/01/20 11:29 98.5 F 65 20 128/58 L 96 11/01/20 09:29 96 11/01/20 08:00 98.6 F 61 20 155/71 H 94 11/01/20 03:29 98.7 F 78 17 140/76 H 98 11/01/20 03:16 18 Anesthesia: General LMA Mental Status: Awake Pain Control: Satisfactory Nausea/Vomiting: None Hydration: Adequate Anesthesia-Related Issues: No Anes. Related Issues
[2020-11-01 15:50] LABS: Glucose, Whole Blood 144 mg/dL (60-115)
[2020-11-01 19:52] LABS: Glucose, Whole Blood 184 mg/dL (60-115)
[2020-11-01] MEDS: Insulin Lispro 100 UNIT/ML 3 ML VIAL SUBCUT (20:45)
[2020-11-02] MEDS: HYDROmorphone HCl 0.5 MG/0.5 ML SYRINGE IV ×3 (00:33→10:05)
[2020-11-02 03:40] VITALS: BP 167/79; PULSE 62; RESP 18; TEMP 36.7; O2SAT 97
[2020-11-02 07:28] LABS: Hematocrit 39.4 % (37-47); Hemoglobin 12.3 g/dl (12.0-16.0); Mean Corpuscular HGB Conc 31.2 g/dl (31.0-35.0); Mean Corpuscular Hemoglobin 25.1 pg (27.0-33.0); Mean Corpuscular Volume 80.2 fL (80-98); Mean Platelet Volume 10.6 fL (9.4-12.3); Platelet Count 295 X10*3/uL (160-400); Red Blood Count 4.91 X10*6/uL (4.20-5.50); Red Cell Distribution Width 15.2 % (11.0-16.0); White Blood Count 10.6 X10*3/uL (4.8-10.8)
[2020-11-02 07:33] LABS: Glucose, Whole Blood 138 mg/dL (60-115)
[2020-11-02 07:50] LABS: Anion Gap 11 (12-20); Blood Urea Nitrogen 17 mg/dL (9-16); Calcium 9.2 mg/dL (8.4-10.2); Carbon Dioxide 31 mmol/L (22-29); Chloride 103 mmol/L (96-108); Estimated Glomerular Filt Rate > 60; Glucose Fasting 136 mg/dL (60-99); Potassium 3.1 mmol/L (3.3-5.1); Sodium 142 mmol/L (135-145)
[2020-11-02 08:00] VITALS: BP 128/60; PULSE 61; RESP 19; TEMP 36.9; O2SAT 95
[2020-11-02] MEDS: Famotidine 20 MG TABLET PO (08:22)
[2020-11-02] MEDS: Topiramate 25 MG TABLET PO (08:22)
[2020-11-02] MEDS: Escitalopram Oxalate 10 MG TABLET PO (08:22)
[2020-11-02] MEDS: 0.9 % Sodium Chloride Flush 3 ML SYRINGE IVFLUSH (08:22)
[2020-11-02 09:00] VITALS: O2SAT 95
[2020-11-02 09:51] LABS: ~HepC Num1 0.06 S/CO (0.00-0.79); ~Hepatitis C Antibody Nonreactive (Nonreactive)
--- NOTE | 2020-11-02 09:51 | PM.DS ---
DS: Providers Provider Date of Service: 11/02/20 Date of admission: 10/29/20 20:17 Primary care physician: Josephine Austin MD Consults: 10/29/20 20:17 Consult to Urology Routine Consulting Provider: Grant Zabala Reason for consultation: Renal stone/hydronephrosis DS: Diagnosis Discharge Diagnosis (1) Hydronephrosis with renal calculous obstruction: Status: Acute (2) New onset type 2 diabetes mellitus: Status: Acute DS: Medications Discharge Medications Home Medications: Home Medications Medication Instructions Recorded Confirmed topiramate 25 mg PO BID 10/29/20 10/29/20 tramadol 50 mg PO Q8H PRN 10/29/20 10/29/20 Previous Rx's Medication Instructions Recorded citalopram 20 mg tablet 20 mg PO DAILY 90 Days #90 tab 08/04/20 famotidine 20 mg tablet 20 mg PO BID 30 Days #60 tab 08/09/20 albuterol sulfate 2.5 mg INHALATION TID PRN 30 Days 09/09/20 #270 ml fluticasone propionate 110 1 puff INHALATION BID 30 Days #12 g 09/09/20 mcg/actuation HFA aerosol inhaler metformin 500 mg PO BID #60 tab 11/02/20 oxycodone 5 mg PO Q6H PRN #10 cap 11/02/20 DS: Summary Hospital Course Hospital Course: Patient was admitted for severe pain due to obstructing ureteral stone with hydronephrosis. She was treated with analgesics and seen by Urology who performed cystoscopy and ureteral stent placement. Patient's pain has subsequently improved, although it is still present and she will be given 10 pills of oxycodone 5 mg on discharge. She will follow up outpatient with Urology for ESWL. Patient was noted to have elevated blood sugars during admission. On review of the chart appears patient likely had a previous diagnosis of diabetes that she was unaware of. Her A1c is 8.4. Patient was educated made aware of her diagnosis. She will be discharged on metformin 500 mg b.i.d.. Time Spent with Patient Time attestation: Total time spent providing and/or coordinating discharge services: Discharge coordination time: Greater than 30 minutes Quality: Stroke Does the patient have a stroke diagnosis?: No Physical Exam Vital Signs: Vital Signs: Last Vital Signs Temp 98.5 F 11/02/20 08:00 Pulse 61 11/02/20 08:00 Resp 19 11/02/20 08:00 BP 128/60 11/02/20 08:00 Pulse Ox 95 11/02/20 09:00 Body Mass Index 47.5 General: AO X 3, no acute distress Resp: CTA bilateral CVS: S1,S2,RRR GI: soft, non tender, non distended Neuro: motor grossly intact Psych: appropriate affect DS: Data Data Completed and Pending Labs on day of discharge: Laboratory Results - last 24 hr 11/01/20 11/01/20 11/01/20 11:16 15:45 19:44 WBC RBC Hgb Hct MCV MCH MCHC RDW Plt Count MPV Absolute Nucleated RBC Nucleated RBC % (auto) Sodium Potassium Chloride Carbon Dioxide Anion Gap BUN Creatinine Estim Creat Clear Calc Estimated GFR POC Glucose 148 H 144 H 184 H Fasting Glucose Calcium 11/02/20 11/02/20 11/02/20 05:53 05:53 07:22 WBC 10.6 RBC 4.91 Hgb 12.3 Hct 39.4 MCV 80.2 MCH 25.1 L MCHC 31.2 RDW 15.2 Plt Count 295 MPV 10.6 Absolute Nucleated RBC 0.000 Nucleated RBC % (auto) 0.0 Sodium 142 Potassium 3.1 L Chloride 103 Carbon Dioxide 31 H Anion Gap 11 L BUN 17 H Creatinine 0.85 Estim Creat Clear Calc 90.0 Estimated GFR > 60 POC Glucose 138 H Fasting Glucose 136 H Calcium 9.2 Preliminary micro results at discharge 10/29/20 18:22 Blood Culture - Preliminary Blood - Venous No growth after 48 hours. 10/29/20 18:08 Blood Culture - Preliminary Blood - Venous No growth after 48 hours. Discharge Plan Discharge Patient Disposition: Home, Self-Care Discharge Diagnosis: DM, obstructing kidney stone Referrals: Grant Zabala MD [Physician] - 1 Week Josephine Lemons MD [Primary Care Provider] - 1 Week Discharge Medications: New oxycodone 5 mg capsule 5 mg PO Q6H PRN (Reason: pain ) Qty: 10 RF: 0 metformin 500 mg tablet 500 mg PO BID Qty: 60 RF: 0 Continued citalopram 20 mg tablet 20 mg PO DAILY 90 Days Qty: 90 RF: 3 famotidine [Pepcid] 20 mg tablet 20 mg PO BID 30 Days Qty: 60 RF: 6 albuterol sulfate 2.5 mg /3 mL (0.083 %) solution for nebulization 2.5 mg inhalation TID PRN (Reason: bronchospasm) 30 Days Qty: 270 RF: 8 Flovent HFA 110 mcg/actuation HFA aerosol inhaler 1 puff INHALATION BID 30 Days Qty: 12 RF: 6 topiramate 25 mg tablet 25 mg PO BID RF: 0 tramadol 50 mg tablet 50 mg PO Q8H PRN (Reason: Pain (Scale Score 4-6)) RF: 0 Discharge Orders: Discharge Order (Routine); Ordered 11/02/20 Ordered By: Lokesh Will Diet: diabetic diet Activity on Discharge: As tolerated Stand Alone Forms: Patient Portal Discharge page Care Plan Goals: manage stone and dm Health Concerns: new DM, kidney stone Plan of Treatment: follow up with urology, start on metformin, follow up with primary care doctor to treat your DM, avoid cocaine and other illicit substances Assessment: see above
--- NOTE | 2020-11-02 09:56 | MHC.CM.PN ---
Patient has been medically cleared for dc to home today, no services.
== END 2020-11-02 11:14 | disposition home or self-care (01) | DRG 465 ==
LOC: HO.ED 19:42 → HO.IMC 20:47
PROVIDERS: Nurse Practitioner Family; Physician Assistant; Urology; Admitting Provider Hospitalist; Emergency Provider Emergency Medicine; PCP Internal Medicine; Visit Provider Internal Medicine
PROC: 0T778DZ Dilation of Left Ureter with Intraluminal Device, Via Natural or Artificial Opening Endoscopic (ICD-10-PCS; principal; 2020-10-31 09:00)
DX: N13.2 Hydronephrosis with renal and ureteral calculous obstruction (principal); E87.2 Acidosis; K75.81 Nonalcoholic steatohepatitis (NASH); E11.9 Type 2 diabetes mellitus without complications; E78.5 Hyperlipidemia, unspecified; K21.9 Gastro-esophageal reflux disease without esophagitis; I10 Essential (primary) hypertension; K59.00 Constipation, unspecified; Z79.51 Long term (current) use of inhaled steroids; Z79.84 Long term (current) use of oral hypoglycemic drugs; Z79.891 Long term (current) use of opiate analgesic; Z79.899 Other long term (current) drug therapy
CPT/HCPCS: 36415; 74018; 74176; 80048; 80076; 80307; 81001; 82947; 83036; 83605; 83690; 83735; 85025; 85027; 85610; 85730; 86803; 87040; 87635; 99285; C1758; C1769; C2617; J1100; J1170; J1885; J1956; J2250; J2270; J2405; J3010; Q9967

== ENCOUNTER 2020-11-05 15:43 | Emergency (ER) | payer OTHER, SELFPAY | END 2020-11-05 20:35 | disposition left against medical advice (07) | PROVIDERS: Emergency Provider Emergency Medicine | DX: N20.0 Calculus of kidney (principal) ==

== ENCOUNTER 2020-12-08 06:22 | Day surgery (SDC) | payer OTHER, SELFPAY ==
[2020-12-01 10:51] VITALS: BMI 47.6
--- NOTE | 2020-12-07 09:05 | HO.ANESPROP2 ---
Documented by User: Kadie Cervantesney 12/07/20 09:07 HPI - Anesthesia Eval Consult details Narrative: 60yo F for L ESWL s/p L stent with GA-LMA 10/2020 No prev ESWL on record +cocaine use chronic opioids PMFSH Active Problems Active Problems: All Active Problems (Updated 11/04/20 @ 13:03 by Josephine Austin MD) Hydronephrosis with renal calculous obstruction (Acute) Lactic acidosis due to diabetes mellitus (Acute) New onset type 2 diabetes mellitus (Acute) Diabetes mellitus (Acute) Cocaine use (Acute) Bilateral post-traumatic osteoarthritis of knee (Acute) Hypertension (Acute) GERD (gastroesophageal reflux disease) (Acute) Dyslipidemia (Acute) Right knee pain (Acute) Past Medical History Medical History Arthritis Asthma Bilateral post-traumatic osteoarthritis of knee Cocaine use Depression Diabetes mellitus Dyslipidemia GERD (gastroesophageal reflux disease) History of allergic rhinitis History of headache Hx of low back pain Hypertension Insomnia Obesity Right knee pain Family History Family History Father No problems noted. Mother No problems noted. Maternal Grandmother Throat cancer Sister In good health Brother In good health Surgical History Surgical History History of open reduction and internal fixation (ORIF) procedure Hx of cystoscopy Social History Social History Household Members: Family Housing: Apartment Are you a primary tire care manager to a significant other at home: No Do you presently have visiting nurse or other home services: No Alcohol intake: former Patient Tobacco Use Status: Never used Tobacco Use of substances other than those prescribed or required for medical reasons: Yes Substance Use Type: Crack/Cocaine and Opiates Advance Directives Information Provided: No service: No Current occupational status: unemployed and disabled Current occupation: right handed Meds Allergies Allergy/AdvReac Type Severity Reaction Status Date / Time No Known Allergies Allergy Verified 11/04/20 12:55 Home Medications Medication Instructions Recorded Confirmed Last Taken Type topiramate 25 mg PO BID 10/29/20 12/01/20 Unknown History Exam Exam Date and Time: December 07, 2020 0905 Height,Weight and Vital Signs: Height 5 ft 3 in Weight 122.016 kg Assessment and Plan Assessment Anesthesia Assessment: Chart Reviewed Documented by User: Jacquelyn Mckeon 12/08/20 07:49 PMFSH Past Medical History Medical History Arthritis Asthma Bilateral post-traumatic osteoarthritis of knee Cocaine use Depression Diabetes mellitus Dyslipidemia GERD (gastroesophageal reflux disease) History of allergic rhinitis History of headache Hx of low back pain Hypertension Insomnia Obesity Right knee pain Family History Family History Father No problems noted. Mother No problems noted. Maternal Grandmother Throat cancer Sister In good health Brother In good health Surgical History Surgical History History of open reduction and internal fixation (ORIF) procedure Hx of cystoscopy Social History Social History Household Members: Family Housing: Apartment Are you a primary tire care manager to a significant other at home: No Do you presently have visiting nurse or other home services: No Alcohol intake: former Patient Tobacco Use Status: Never used Tobacco Use of substances other than those prescribed or required for medical reasons: Yes Substance Use Type: Crack/Cocaine and Opiates Advance Directives Information Provided: No service: No Current occupational status: unemployed and disabled Current occupation: right handed Meds Allergies Allergy/AdvReac Type Severity Reaction Status Date / Time No Known Allergies Allergy Verified 11/04/20 12:55 Home Medications Medication Instructions Recorded Confirmed Last Taken Type topiramate 25 mg PO BID 10/29/20 12/01/20 Unknown History Exam Airway Mallampati Class: II (Edentulous) TM Dist: >3cm Neck ROM: Full Loose/Missing/Broken Teeth: Yes, Upper and Lower Heart: RRR Lungs: CTA Assessment and Plan Assessment Anesthesia Assessment: Anesthesia Plan Discussed and Chart Reviewed Final Anesthetic Review NPO: Yes ASA Class: III Final Preanesthetic Review: Meds/Allgs Chart Reviewed, Consent Obtained/Reviewed and Anes Risks/Benef Reviewed Patient Risk: Intermediate Procedure Risk: Low Anesthetic Plan Anesthetic Plan: MAC: Disposition: Standard PACU
--- NOTE | ~2020-12-08 | XR_ITS ---
EXAMINATION: XR ABDOMEN KUB CLINICAL INDICATION: Left renal stones. COMPARISON: 11/01/2020 and KUB of 12/08/2009. TECHNIQUE: AP view of the abdomen. FINDINGS: The bowel gas pattern is normal with no evidence of ileus or obstruction. A left ureteral stent is seen in place. There is a 7 mm calculus adjacent to the proximal aspect of the stent. Multiple phleboliths are seen about the pelvis. No calcification is noted along the length of the ureter. There is degenerative disc disease seen at the L4-L5 disc space level. Sacroiliac joints unremarkable. XR/XR KUB IMPRESSION: 7 mm calculus within the left upper collecting system adjacent to the left ureteral stent.
[2020-12-08 07:04] VITALS: BP 155/77; PULSE 95; RESP 22; TEMP 36.6; O2SAT 97
[2020-12-08 07:11] LABS: Glucose, Whole Blood 163 mg/dL (60-115)
[2020-12-08] MEDS: Lactated Ringers 1,000 ML 100 ML IVCONT (07:17)
[2020-12-08 07:32] LABS: Amphetamine Screen Urine Not Detected (Not Detect); Barbiturates, Urine Not Detected (Not Detect); Benzodiazepines Screen Urine Not Detected (Not Detect); Cannabinoid Screen Urine Not Detected (Not Detect); Cocaine Screen Urine Not Detected (Not Detect); Opiate Screen Urine Not Detected (Not Detect); Phencyclidine Screen Urine Not Detected (Not Detect)
--- NOTE | 2020-12-08 08:13 | MHC.SHP ---
Pre-Procedural Eval Section A Date of Service: 12/08/20 Section B Chief Complaint: Calculus of Kidney Details of Present Illness: left stent placed 4 weeks ago Relevant Social History: None Present Medications: None Medical History: No relevant PMH History of Previous Operations: Relevant previous surgery/procedure and date(s) Allergies: Allergies Allergy/AdvReac Type Severity Reaction Status Date / Time No Known Allergies Allergy Verified 11/04/20 12:55 Review of Systems Sugical H&P ROS: Negative: Constitution, Cardiovascular, Respiratory, Neurological, Psychiatric, Hem-Onc, Allergic/Immunologic, Gastrointestinal, Genitourinary, Musculoskeletal, Integumentary, Endocrine and Eyes/Ears/Nose/Throat Exam Surgical H&P Exam: Normal: HEENT, Normal: Heart, Normal: Lungs, Normal: Extremities, Normal: Abdomen, Normal: Skin and Normal: Neurological Plan Diagnosis/Plan: Unchanged (left ESWL) I have reviewed the history and physical and performed a pertinent physical examination on my patient. No changes have occurred unless specified.
[2020-12-08] MEDS: Acetaminophen 325 MG TABLET 650 MG PO (08:35)
--- NOTE | 2020-12-08 08:57 | W.PM.OPN ---
Operative Note Operative Note Date of Service: 12/08/20 Narrative: PreOperative Diagnosis: left Renal stones Post Operative Diagnosis: Renal stones Procedure: left ESWL Surgeon: Dr Grant Zabala Anesthesia: mac/sedation Indications for procedure: They understand ESWL may be a staged procedure and subsequent intervention may be required based on imaging after ESWL. They also understand there is a risk of bleeding, infection, damage to adjacent organs. Procedure: After informed consent was verified the patient was brought to the operating room and placed in a supine position. Anesthesia was performed per protocol. Safety pause time-out was performed. Imaging was in the room and laterality confirmed. - stone and stent identified on the left side - 8mm stone ESWL was performed. The 1st 500 shocks were performed at 60 hertz. These were performed with increasing power. Once maximum power was reached the rate was increased to 180 hertz. A total of 2500 shocks were given. Fluoroscopy showed stone disintegration. They tolerated procedure well and was transferred to the recovery area upon completion.
[2020-12-08 09:22] VITALS: BP 142/80; PULSE 93; RESP 12; TEMP 36.2; O2SAT 97
[2020-12-08 09:27] VITALS: PULSE 87; RESP 16; O2SAT 94
[2020-12-08 09:37] VITALS: BP 162/92; PULSE 87; RESP 16; O2SAT 96
[2020-12-08 09:52] VITALS: BP 153/84; PULSE 83; RESP 16; O2SAT 97
== END 2020-12-08 10:20 | disposition home or self-care (01) ==
PROVIDERS: Nurse Practitioner; Visit Provider Urology
PROC: (CPT 50590; principal; 2020-12-08 08:20)
DX: N20.0 Calculus of kidney (principal); I10 Essential (primary) hypertension; J45.909 Unspecified asthma, uncomplicated; E78.5 Hyperlipidemia, unspecified; E11.10 Type 2 diabetes mellitus with ketoacidosis without coma; F11.20 Opioid dependence, uncomplicated; F32.9 Major depressive disorder, single episode, unspecified; F14.90 Cocaine use, unspecified, uncomplicated; K21.9 Gastro-esophageal reflux disease without esophagitis; Z79.51 Long term (current) use of inhaled steroids; Z79.84 Long term (current) use of oral hypoglycemic drugs; Z79.899 Other long term (current) drug therapy
CPT/HCPCS: 50590; 74018; 80307; 82947; J1885; J2250; J2405

== ENCOUNTER → 2020-12-17 14:40 | Outpatient (BNVA) | payer OTHER, SELFPAY | PROVIDERS: PCP Internal Medicine; Visit Provider Urology | DX: N20.0 Calculus of kidney (principal) | CPT/HCPCS: 52310; 99212 ==

== ENCOUNTER 2021-02-16 16:22 | Emergency (ER) | payer OTHER, SELFPAY ==
--- NOTE | ~2021-02-16 | XR_ITS ---
EXAMINATION: XR SHOULDER, RIGHT CLINICAL INFORMATION: Right shoulder pain COMPARISON: 05/13/2015 TECHNIQUE: AP external rotation, Grashey, scapular Y, and axillary views of the right shoulder. FINDINGS: Again seen are subchondral cysts present beneath the greater tuberosity. Degenerative changes are again seen at the AC joint. The glenohumeral joint shows some minimal osteophyte formation. No acute fractures seen. No rotator cuff calcifications. Findings have progressed slightly when compared to 05/13/2015 XR/XR shoulder RT min 2V IMPRESSION: Degenerative changes right shoulder
[2021-02-16 16:53] VITALS: BP 175/77; PULSE 89; RESP 14; TEMP 36.8; O2SAT 97
[2021-02-16 16:59] VITALS: BP 175/77; PULSE 89; RESP 14; TEMP 36.8; O2SAT 97; BMI 48.9
--- NOTE | 2021-02-16 17:25 | ED.GENADULT ---
HPI - General Adult General Chief complaint: General Medical Stated complaint: R arm pain x 3 weeks Time Seen by Provider: 02/16/21 17:15 History of Present Illness HPI narrative: This is a 60-year-old obese female that is coming from home with concerns of right shoulder pain. She states this has been happening for about 3 months, but she has not come into the hospital due being afraid of catching COVID-19. She states that she came in today he kind is the pain has gotten a little bit worse. She states the pain is only present when she is moving her right shoulder. She states that at baseline she has limited range of motion to the right shoulder due to chronic osteoarthritis. But she states that over the past 3 months her range of motion has been even more limited than usual due to pain in the right shoulder. She denies any trauma to the area, nothing like this has ever happened before. According to the patient she states that she has a lump underneath her axilla. She denies any fevers, chills, chest pain, shortness of breath, neck pain, trauma, sick contacts. She is right-hand dominant Onset (ago): month(s) (Three months) Location: upper extremity (Right shoulder) Radiation: non-radiation Severity: mild and moderate Severity scale (1-10): 4 Pain Consistency: constant Relieving factors: none Exacerbating factors: movement Associated symptoms: denies other symptoms Treatments prior to arrival: none Related Data Home Medications Medication Instructions Recorded Confirmed topiramate 25 mg tablet 25 mg PO BID 10/29/20 12/01/20 Previous Rx's Medication Instructions Recorded citalopram 20 mg tablet 20 mg PO DAILY 90 Days #90 tab 08/04/20 famotidine 20 mg tablet (Pepcid) 20 mg PO BID 30 Days #60 tab 08/09/20 albuterol sulfate 2.5 mg INHALATION TID PRN 30 Days 09/09/20 #270 ml fluticasone propionate 110 1 puff INHALATION BID 30 Days #12 g 09/09/20 mcg/actuation HFA aerosol inhaler (Flovent HFA) metformin 500 mg tablet 500 mg PO BID #60 tab 11/02/20 tamsulosin 0.4 mg capsule 0.4 mg PO BEDTIME 14 Days #14 cap 12/08/20 pyridoxine (vitamin B6) 100 mg 100 mg PO DAILY 90 Days #90 tab 12/17/20 tablet acetaminophen 325 mg tablet 650 mg PO Q6H PRN #10 tab 02/16/21 (Tylenol) naproxen 500 mg tablet 500 mg PO BID PRN #10 tab 02/16/21 oxycodone 5 mg tablet 5 mg PO Q6H PRN #14 tab 02/16/21 Allergies Allergy/AdvReac Type Severity Reaction Status Date / Time No Known Allergies Allergy Verified 11/04/20 12:55 Review of Systems Review of Systems: Constitutional : No Weight loss, No Fever, No Chills, No Night Sweats, No Fatigue, No Malaise ENT/Mouth : No Hearing loss, No Ear Pain, No Nasal Congestion, No Sinus Pain Eyes: No Eye Pain, No Swelling, No Redness, No Foreign Body, No Discharge, No Vision Changes Cardiovascular : No Chest Pain, No SOB, No Dyspnea on Exertion, No Orthopnea, No Edema, No Palpitations Respiratory : No Cough, No Sputum, No Wheezing, No Smoke Exposure, No Dyspnea Gastrointestinal : No Nausea, No Vomiting, No Diarrhea, No Constipation, No abdominal Pain, No Hematochezia, No Melena Genitourinary : no irregular bleeding, No Dysuria, No Urinary Frequency, No Hematuria, No Urinary Incontinence, No Urgency, No Flank Pain, No Urinary Flow Changes, No Hesitancy Musculoskeletal : No Myalgias, No Joint Swelling, pain with active and passive range of motion to the right shoulder. Skin : No Skin Lesions, No rash, patient states she has a lump under the right axilla unable . Neuro : No Weakness, No Numbness, No Paresthesias, No Loss of Consciousness, No Dizziness, No Headache Psych : No Anxiety/Panic, No Depression, No SI/HI/AH/VH, No Social Issues, Heme/Lymph: No Bruising, No Bleeding,No Lymphadenopathy Endocrine : No Polyuria, No Polydipsia Yes all other systems are reviewed and are negative [facility] Past Medical History Attestation statement: The following information was validated with the patient. Source: old records reviewed Medical History (Updated 02/16/21 @ 18:47 by LAYTON Morales) Arthritis Asthma Bilateral post-traumatic osteoarthritis of knee Cocaine use Depression Diabetes mellitus Dyslipidemia GERD (gastroesophageal reflux disease) History of allergic rhinitis History of headache Hx of low back pain Hypertension Insomnia Obesity Right knee pain Screen for colon cancer Surgical History History of open reduction and internal fixation (ORIF) procedure Hx of cystoscopy Family History Family History Father No problems noted. Mother No problems noted. Maternal Grandmother Throat cancer Sister In good health Brother In good health Social History Social History Household Members: Family Housing: Apartment Are you a primary healthcare specialist to a significant other at home: No Do you presently have visiting nurse or other home services: No Alcohol intake: former Patient Tobacco Use Status: Never used Tobacco Substance Use Type: Crack/Cocaine and Opiates Advance Directives: No Advance Directives Information Provided: No Patient : No service: No Current occupational status: unemployed and disabled Current occupation: right handed Physical Exam Vital Signs: Vital Signs: Last Vital Signs Temp 97.8 F 02/16/21 18:51 Pulse 77 02/16/21 18:51 Resp 14 02/16/21 18:51 BP 162/74 H 02/16/21 18:51 Pulse Ox 97 02/16/21 18:51 Body Mass Index 48.9 vital signs have been reviewed as normal and appeared to be correct. Blood pressure normal. Heart rate normal. Respiration rate normal. Temperature normal. Oxygen saturation normal. Appearance: Alert. Oriented X3. No acute distress. Head: Normal external exam. Normocephalic. Atraumatic. Eyes: PERRLA. EOMI. Conjunctiva and sclera normal. Eyelids normal. ENT: EAC normal. TM's Normal. Pharynx normal. Uvula midline. Moist mucous membranes. Neck: Normal inspection. Neck supple. FROM. No adenopathy. CVS: Normal heart rate and rhythm. Heart sound normal. Pulses normal throughout. No murmurs/rales/gallops. Respiratory: No respiratory distress. Painless inspiration. Breath sounds normal. No wheezes/rales/rhonchi noted. Chest nontender. No accessory muscle usage noted or decreased air movement noted. Abdomen: Soft and nontender. Bowel sounds normal in all 4 quadrants. No distention noted. No organomegaly noted. No visible injury noted. Back: No CVA tenderness. Full range of motion noted. No rashes/lesion/induration/fluctuance or signs of infection noted. Skin: Skin warm and dry. Normal skin color. Normal skin turgor. No rashes/lesions/lacerations noted. Extremities: No lower extremity edema. Right shoulder exhibits limited range of motion due to pain. Left shoulder has full range of motion free of pain Patient states that there is a lump in her right axilla, unable to palpate this lump on exam. Neuro: Oriented X 3. No motor deficit. No sensory deficit. Reflexes normal. Normal steady gait. No focal neuro deficits noted. Vascular: + radial pulses/+ 2 distal pedal pulses/+2 dorsalis pedis b/l. Normal cap refill. No cyanosis noted to upper extremity nails and lower extremity toes nails. Course Course Course Narrative: This is a 60-year-old female that reports atraumatic right shoulder pain has been worsening past 3 months. She states that the pain has planned particularly bad these past few days. And nothing seems to alleviate the pain. Due to the patient history, and physical exam showing decreased range of motion to the right shoulder a x-ray of the right shoulder has been ordered. X-ray of the right shoulder reveals degenerative changes Plan at this time is to discharge her home with medications for the pain. She has been advised to follow-up with her PCP with any new or worsening symptoms. If she develops any fevers, chills, shortness of breath, chest pain or if the symptoms severely worsen she should return to the emergency department to be evaluated. Patient has been educated on the diagnosis and she is aware of the plan. She has no further questions Medical Decision Making Imaging Data X-ray of right shoulder: Attestation: I personally reviewed and interpreted this imaging study as follows: Radiologist's impression: FINDINGS: Again seen are subchondral cysts present beneath the greater tuberosity. Degenerative changes are again seen at the AC joint. The glenohumeral joint shows some minimal osteophyte formation. No acute fractures seen. No rotator cuff calcifications. Findings have progressed slightly when compared to 05/13/2015 XR/XR shoulder RT min 2V IMPRESSION: Degenerative changes right shoulder Discharge Plan Discharge Clinical Impression: Right shoulder strain, Osteoarthritis Patient Disposition: Home, Self-Care Instructions: Muscle Strain (ED), Osteoarthritis (ED) Additional Instructions: Take all medications as prescribed Follow-up with the primary care provider Return to the emergency department if he develops fevers, chills, shortness of breath or chest pain. Or if symptoms severely worsen. Prescriptions: New naproxen 500 mg tablet 500 mg PO BID PRN (Reason: pain) Qty: 10 RF: 0 oxycodone 5 mg tablet 5 mg PO Q6H PRN (Reason: pain) Qty: 14 RF: 0 acetaminophen [Tylenol] 325 mg tablet 650 mg PO Q6H PRN (Reason: fever or pain) Qty: 10 RF: 0 No Action citalopram 20 mg tablet 20 mg PO DAILY 90 Days Qty: 90 RF: 3 famotidine [Pepcid] 20 mg tablet 20 mg PO BID 30 Days Qty: 60 RF: 6 albuterol sulfate 2.5 mg /3 mL (0.083 %) solution for nebulization 2.5 mg inhalation TID PRN (Reason: bronchospasm) 30 Days Qty: 270 RF: 8 Flovent HFA 110 mcg/actuation HFA aerosol inhaler 1 puff INHALATION BID 30 Days Qty: 12 RF: 6 topiramate 25 mg tablet 25 mg PO BID RF: 0 metformin 500 mg tablet 500 mg PO BID Qty: 60 RF: 0 tamsulosin 0.4 mg capsule 0.4 mg PO BEDTIME 14 Days Qty: 14 RF: 0 pyridoxine (vitamin B6) 100 mg tablet 100 mg PO DAILY 90 Days Qty: 90 RF: 1 Referrals: Josephine Lemons MD [Primary Care Provider] - 2 days Print Language: Portuguese
[2021-02-16 18:51] VITALS: BP 162/74; PULSE 77; RESP 14; TEMP 36.6; O2SAT 97
== END 2021-02-16 19:00 | disposition home or self-care (01) ==
PROVIDERS: Emergency Provider Emergency Medicine Emergency Medical Services; PCP Internal Medicine
DX: S43.401A Unspecified sprain of right shoulder joint, initial encounter (principal); M25.511 Pain in right shoulder; M19.011 Primary osteoarthritis, right shoulder; X58.XXXA Exposure to other specified factors, initial encounter; Y93.9 Activity, unspecified; Y92.9 Unspecified place or not applicable; Y99.9 Unspecified external cause status; Z79.899 Other long term (current) drug therapy
CPT/HCPCS: 73030; 99283

== ENCOUNTER 2021-04-18 11:36 | Outpatient (REF) | payer OTHER, SELFPAY ==
[2021-04-18 15:51] LABS: CT PCR NOT DETECTED (Not Detect.); NG PCR NOT DETECTED (Not Detect.)
[2021-04-19 09:17] LABS: BV Int Neg Control Negative (Negative); BV Int Pos Control Positive (Positive)
[2021-04-22 02:36] LABS: HPV mRNA E6/E7 rflx Not Detected (Not Detected)
== END 2021-04-18 11:37 | disposition home or self-care (01) ==
LOC: HO.LAB 11:36
PROVIDERS: PCP Internal Medicine; Visit Provider Advanced Practice Midwife
DX: N93.8 Other specified abnormal uterine and vaginal bleeding (principal); R23.2 Flushing; N92.1 Excessive and frequent menstruation with irregular cycle
CPT/HCPCS: 87480; 87491; 87510; 87591; 87624; 87660; 88142; 99212

== ENCOUNTER 2021-11-11 10:09 | Inpatient (IN) | payer OTHER, SELFPAY ==
[2021-11-11] VITALS (11 sets, daily range): BP systolic 150–182; BP diastolic 67–90; PULSE 87–110; RESP 16–20; TEMP 36.3–37.1; O2SAT 87–100; BMI 51.0
--- NOTE | ~2021-11-11 | XR_ITS ---
EXAMINATION: XR CHEST CLINICAL INFORMATION: Chest pain SOB. COMPARISON: None TECHNIQUE: 2 views of the chest were obtained. FINDINGS: The lungs are well-expanded and clear. The heart size is enlarged. Pulmonary vascularity is normal. No gross bony abnormality seen. XR/XR chest 2V IMPRESSION: Mild cardiomegaly. No acute process seen in the chest.
--- NOTE | 2021-11-11 10:18 | ECG_ITS ---
Test Reason : sob Blood Pressure : / mmHG Vent. Rate : 096 BPM Atrial Rate : 096 BPM P-R Int : 150 ms QRS Dur : 086 ms QT Int : 394 ms P-R-T Axes : 043 -18 115 degrees QTc Int : 497 ms Normal sinus rhythm Possible Left atrial enlargement Minimal voltage criteria for LVH, may be normal variant ( Deon product ) T wave abnormality, consider lateral ischemia Prolonged QT Abnormal ECG When compared with ECG of 12-JUL-2019 12:50, Nonspecific T wave abnormality no longer evident in Inferior leads Referred By: Lavinia Rubio Electronically Signed By:SHIVAM CARLSON
[2021-11-11] MEDS: Albuterol Sulfate (0.083%) 2.5 MG/3 ML VIAL.NEB 5 MG INHALE ×2 (10:34→12:11)
--- NOTE | 2021-11-11 10:36 | ED_ITS ---
HPI - SOB/Dyspnea General Chief Complaint: Dyspnea Stated Complaint: sob Time Seen by Provider: 11/11/21 10:17 Source: patient Mode of arrival: EMS Limitations: language barrier ( Singaporean-speaking lpn medical assistant utilized) History of Present Illness HPI Narrative: patient presents emergency department for evaluation of shortness of breath and difficulty breathing. She reports a history of asthma and states over the past 3-4 days she has been having worsening of her cough and shortness of breath. Has associated pain in my lungs while holding lateral lower chest wall, reporting anterior chest pain only with coughing. States that this feels like a typical asthma exacerbation for her. She has been using her albuterol inhaler and nebulizer machine at home without significant improvement. She denies any known sick contacts. States she has been vaccinated for COVID-19. Denies fevers, chills, dizziness, lightheadedness headache, neck pain palpitations, nausea, vomiting, abdominal pain, generalized weakness. Related Data Previous Rx's Medication Instructions Recorded albuterol sulfate 90 mcg/actuation 2 puff inhalation Q6H PRN 08/16/21 aerosol inhaler bronchospasm 30 days #6.7 grams blood pressure monitor (Blood #1 ea 08/16/21 Pressure Kit) blood sugar diagnostic (FreeStyle #100 ea 08/16/21 Lite Strips) blood-glucose meter (FreeStyle #1 ea 08/16/21 Lite Meter) citalopram 20 mg tablet 20 mg PO DAILY 90 days #90 tabs 08/16/21 famotidine 20 mg tablet (Pepcid) 20 mg PO BID 30 days #60 tabs 08/16/21 fluticasone propionate 110 1 puff inhalation BID 90 days #36 08/16/21 mcg/actuation HFA aerosol inhaler grams (Flovent HFA) lisinopril 40 mg tablet 40 mg PO DAILY 90 days #90 tabs 08/16/21 metformin 1,000 mg tablet 1,000 mg PO BID 90 days #180 tabs 08/16/21 naproxen 500 mg tablet 500 mg PO BID PRN pain #10 tabs 08/16/21 nebulizers (AeroEclipse II #1 ea 08/16/21 Nebulizer) pyridoxine (vitamin B6) 100 mg 100 mg PO DAILY 90 days #90 tabs 08/16/21 tablet topiramate 25 mg tablet 25 mg PO BID 90 days #180 tabs 08/16/21 linagliptin 5 mg tablet (Tradjenta) 5 mg PO DAILY 90 days #90 tabs 09/08/21 nebulizers (AeroEclipse II #1 ea 10/10/21 Nebulizer) Allergies Allergy/AdvReac Type Severity Reaction Status Date / Time No Known Allergies Allergy Verified 07/27/21 08:27 Review of Systems Review of Systems: Constitutional : No Fever, No Chills ENT/Mouth : No Hoarseness, No sore throat, No Rhinorrhea Eyes: No Redness, No Discharge, No Vision Changes Cardiovascular : Positive Chest Pain, positive SOB, positive Dyspnea on Exertion, No Edema Respiratory : positive Cough, positive Sputum, positive Wheezing, Gastrointestinal : No Nausea, No Vomiting, No Diarrhea, No abdominal Pain Genitourinary : No Dysuria, No Hematuria Musculoskeletal : No joint pain, No Myalgias Skin : No rash Neuro : No Weakness, No Numbness, No Headache Psych : No anxiety, depression Heme/Lymph: No Bruising, No Bleeding Endocrine : No Polyuria, No Polydipsia Yes all other systems are reviewed and are negative COUNTS INCLUDE 234 BEDS AT THE [facility] Past Medical History Attestation statement: The following information was validated with the patient. Source: old records reviewed Medical History Arthritis Asthma Bilateral post-traumatic osteoarthritis of knee Cocaine use Depression Diabetes mellitus DUB (dysfunctional uterine bleeding) Dyslipidemia GERD (gastroesophageal reflux disease) History of allergic rhinitis History of headache Hx of low back pain Hypertension Insomnia Morbid obesity with BMI of 50.0-59.9, adult Obesity Right knee pain Screen for colon cancer Surgical History History of open reduction and internal fixation (ORIF) procedure Hx of cystoscopy Family History Family History Father No problems noted. Mother No problems noted. Maternal Grandmother Throat cancer Sister In good health Brother In good health Social History Social History Household Members: Family Housing: Apartment Are you a primary career discovery teacher to a significant other at home: No Do you presently have visiting nurse or other home services: No Alcohol intake: never Patient Tobacco Use Status: Never used Tobacco e-Cigarette/Vaping Use: Never Used Second Hand Smoke Exposure: No Use of substances other than those prescribed or required for medical reasons: No Substance Use Type: Crack/Cocaine and Opiates Advance Directives: No Advance Directives Information Provided: No Patient : No service: No Current occupational status: unemployed and disabled Current occupation: right handed Physical Exam Vital Signs: Vital Signs: Last Vital Signs Temp 98.7 F 11/11/21 10:18 Pulse 96 11/11/21 15:52 Resp 18 11/11/21 15:52 BP 176/87 H 11/11/21 13:20 Pulse Ox 100 11/11/21 13:20 O2 Del Method 11/11/21 12:14 BMI result Body Mass Index 51.0 Vital signs have been reviewed and appeared to be correct. hypertensive? Heart rate normal.? Respiration rate normal. Temperature normal.? Oxygen saturation normal. Appearance: Alert.?Oriented to person, place and time. No acute distress.?Normal affect. Eyes: Pupils equal, round and reactive to light.? ENT: Pharynx normal.?? Neck: Normal inspection.? Neck supple.?? CVS: Heart sounds normal. Normal heart rate and rhythm.? Pulses normal.?? Respiratory: No respiratory distress.? Lung sounds expiratory wheezing bilaterally, diminished at the bases Abdomen: Soft and non-tender. Normoactive bowel sounds. No pulsatile mass.?? Skin: Skin warm and dry.? Normal skin color.? Extremities: No lower extremity edema.? No calf ttp? Neuro: Moves all extremities spontaneously. Sensation intact bilaterally. CN II- XII intact. No focal neuro deficits. Ambulates with normal steady gait. Course Course Course Narrative: patient is a 61-year-old female with a past medical history of type 2 diabetes, dyslipidemia, renal calculi, GERD, hypertension, asthma, obesity presenting to emergency department with shortness of breath reportedly consistent with prior asthma exacerbations. Will obtain CBC to evaluate for leukocytosis/ anemia, CMP to evaluate for abnormal electrolytes /abnormal renal function/ abnormal hepaticfunction, EKG and troponin to evaluate for ischemia/ACS. Chest x-ray to evaluate for consolidation/ infiltrate/ mass/ pulmonary congestion. COVID- 19 testing. Patient to receive DuoNeb and additional albuterol 5 mg, Solu-Medrol 125 mg IV. Disposition will be pending results. Reevaluation(s) Reevaluation #1: CBC is overall unremarkable, CMP is overall unremarkable, mild hypokalemia potassium 3.1, will replace with 40meQ PO. Troponin 8.1, EKG reveals normal sinus rhythm, Prolonged QT, T-wave inversion in the lateral leads, appears consistent with prior EKG in July 2019. COVID- 19 and influenza testing are negative. Chest x-ray with no acute process. no tachycardia or fever. Continues having increased work of breathing with tachypnea, respiratory rate 26, I/E wheezing, but moving OR air. Will order additional DuoNeb and albuterol 5mg nebulizer, Mag 2 g IV, noted room air hypoxia while at bedside, 87%. Plan for hospital admission due to hypoxia secondary to asthma exacerbation/ bronchitis. will likely require overnight oximetry monitoring, noted to have hypoxia down to 82% on room air while asleep and snoring. Time: 11:30 Reevaluation #2: spoke to hospitalist, patient accepted for admission to medicine service under Dr. Alexander for Acute hypoxic respiratory failure, secondary to asthma exacerbation/ bronchitis. patient updated on plan of care and agreeable. Time: 12:00 MDM - SOB/Dyspnea Medical Records Attestation: I reviewed the patient's medical records. Lab Data Attestation: I reviewed the patient's lab results. Result diagrams: 11/11/21 10:34 11/11/21 10:34 Labs: Lab Results 11/11/21 11/11/21 11/11/21 Range/Units 10:34 10:34 10:34 WBC 8.4 (4.8-10.8) X10*3/uL RBC 5.08 (4.20-5.50) X10*6/uL Hgb 12.3 (12.0-16.0) g/dl Hct 39.1 (37.0-47.0) % MCV 77.0 L (80.0-98.0) fL MCH 24.2 L (27.0-33.0) pg MCHC 31.5 (31.0-35.0) g/dl RDW 15.2 (11.0-16.0) % Plt Count 279 (160-400) X10*3/uL MPV 10.0 (9.4-12.3) fL Immature Gran % (Auto) 0.4 (0.0-0.4) % Neut % (Auto) 67.6 (45-73) % Lymph % (Auto) 20.9 (20-40) % [place] % (Auto) 9.8 (2-11) % Eos % (Auto) 0.8 (0-4) % Baso % (Auto) 0.5 (0-2) % Lymph # (Auto) 1.8 (1.2-4.9) X10*3/uL [place] # (Auto) 0.8 (0.1-1.2) X10*3/uL Eos # (Auto) 0.1 (0.0-0.4) X10*3/uL Baso # (Auto) 0.0 (0.0-0.2) X10*3/uL Abs Immat Gran (auto) 0.03 (0.00-0.03) X10*3/uL Absolute Neuts (auto) 5.7 (2.0-8.3) x10*3/uL Absolute Nucleated RBC 0.000 (0.0-0.012) X10*3/uL Nucleated RBC % (auto) 0.0 (0.0-0.2) /100WBC Sodium 139 (135-145) mmol/L Potassium 3.1 L (3.3-5.1) mmol/L Chloride 98 (96-108) mmol/L Carbon Dioxide 31 H (22-29) mmol/L Anion Gap 13 (12-20) BUN 9 (9-16) mg/dL Creatinine 0.82 (0.5-1.4) mg/dL Estim Creat Clear Calc 96.4 Estimated GFR > 60 Random Glucose 285 H (60-115) mg/dL Calcium 9.1 (8.4-10.2) mg/dL Total Bilirubin 0.8 (0.0-1.0) mg/dL AST 25 (5-31) U/L ALT 22 (0-31) U/L Alkaline Phosphatase 138 H (39-117) U/L Troponin I High Sens (<3.5-17.0) ng/L Total Protein 7.2 (6.5-8.0) g/dL Albumin 3.5 (3.5-5.0) g/dL COVID-19 (ANNY) (Negative) COVID-19 Clin Com Influenza Type A (CARLIE) Negative (Negative) Influenza Type B (CARLIE) Negative (Negative) Influenza A & B Note See Note 11/11/21 11/11/21 Range/Units 10:34 10:34 WBC (4.8-10.8) X10*3/uL RBC (4.20-5.50) X10*6/uL Hgb (12.0-16.0) g/dl Hct (37.0-47.0) % MCV (80.0-98.0) fL MCH (27.0-33.0) pg MCHC (31.0-35.0) g/dl RDW (11.0-16.0) % Plt Count (160-400) X10*3/uL MPV (9.4-12.3) fL Immature Gran % (Auto) (0.0-0.4) % Neut % (Auto) (45-73) % Lymph % (Auto) (20-40) % [place] % (Auto) (2-11) % Eos % (Auto) (0-4) % Baso % (Auto) (0-2) % Lymph # (Auto) (1.2-4.9) X10*3/uL [place] # (Auto) (0.1-1.2) X10*3/uL Eos # (Auto) (0.0-0.4) X10*3/uL Baso # (Auto) (0.0-0.2) X10*3/uL Abs Immat Gran (auto) (0.00-0.03) X10*3/uL Absolute Neuts (auto) (2.0-8.3) x10*3/uL Absolute Nucleated RBC (0.0-0.012) X10*3/uL Nucleated RBC % (auto) (0.0-0.2) /100WBC Sodium (135-145) mmol/L Potassium (3.3-5.1) mmol/L Chloride (96-108) mmol/L Carbon Dioxide (22-29) mmol/L Anion Gap (12-20) BUN (9-16) mg/dL Creatinine (0.5-1.4) mg/dL Estim Creat Clear Calc Estimated GFR Random Glucose (60-115) mg/dL Calcium (8.4-10.2) mg/dL Total Bilirubin (0.0-1.0) mg/dL AST (5-31) U/L ALT (0-31) U/L Alkaline Phosphatase (39-117) U/L Troponin I High Sens 8.1 (<3.5-17.0) ng/L Total Protein (6.5-8.0) g/dL Albumin (3.5-5.0) g/dL COVID-19 (ANNY) Negative (Negative) COVID-19 Clin Com See Note Influenza Type A (CARLIE) (Negative) Influenza Type B (CARLIE) (Negative) Influenza A & B Note Imaging Data Chest x-ray: Radiologist's impression: FINDINGS: The lungs are well-expanded and clear. The heart size is enlarged. Pulmonary vascularity is normal. No gross bony abnormality seen. XR/XR chest 2V IMPRESSION: Mild cardiomegaly. No acute process seen in the chest. ECG Data Attestation: I personally reviewed and interpreted this ECG as follows: ECG interpretation date: 11/11/21 Prior ECG tracings: available for review Interpretation: Rate: 96 Rhythm:? normal sinus rhythm Freeman:? normal Normal P waves.? Normal RAISA.?? Normal QRS complex.?? ST T wave :?? no ST elevation, no ST depression. T-wave inversion in the lateral leads qTC: 497 prior studies:?july 2019 The study has been interpreted contemporaneously by me. Discharge Plan Discharge Clinical Impression: Acute respiratory failure with hypoxia, Asthma exacerbation, Hypokalemia Patient Disposition: Admitted As Inpatient
[2021-11-11] MEDS: Albuterol/Iprat 2.5/0.5MG 3 ML AMPUL.NEB INHALE ×2 (10:37→12:11)
[2021-11-11 10:42] LABS: MANUAL DIFF FLAG NO
[2021-11-11 10:43] LABS: Basophils Percent Auto 0.5 % (0-2); Eosinophils Absolute Auto 0.1 X10*3/uL (0.0-0.4); Eosinophils Percent Auto 0.8 % (0-4); Hematocrit 39.1 % (37.0-47.0); Hemoglobin 12.3 g/dl (12.0-16.0); Imm Gran Abs Auto 0.03 X10*3/uL (0.00-0.03); Imm Gran Pct Auto 0.4 % (0.0-0.4); Lymphocytes Absolute Auto 1.8 X10*3/uL (1.2-4.9); Lymphocytes Percent Auto 20.9 % (20-40); Mean Corpuscular HGB Conc 31.5 g/dl (31.0-35.0); Mean Corpuscular Hemoglobin 24.2 pg (27.0-33.0); Monocytes Absolute Auto 0.8 X10*3/uL (0.1-1.2); Monocytes Percent Auto 9.8 % (2-11); Neutrophils Absolute Auto 5.7 x10*3/uL (2.0-8.3); Neutrophils Percent Auto 67.6 % (45-73); Platelet Count 279 X10*3/uL (160-400); Red Blood Count 5.08 X10*6/uL (4.20-5.50); Red Cell Distribution Width 15.2 % (11.0-16.0); White Blood Count 8.4 X10*3/uL (4.8-10.8)
[2021-11-11 10:58] LABS: COVID-19 Test Negative (Negative); IDNOW Serial# 16C4AD1C; Influenza A Negative (Negative); Influenza B2 Negative (Negative)
[2021-11-11 11:11] LABS: Alanine Aminotransferase 22 U/L (0-31); Albumin Level 3.5 g/dL (3.5-5.0); Alkaline Phosphatase 138 U/L (39-117); Anion Gap 13 (12-20); Aspartate Amino Transferase 25 U/L (5-31); Bilirubin Total 0.8 mg/dL (0.0-1.0); Blood Urea Nitrogen 9 mg/dL (9-16); Calcium 9.1 mg/dL (8.4-10.2); Carbon Dioxide 31 mmol/L (22-29); Chloride 98 mmol/L (96-108); Creatinine Clr Calc Pharmacy 96.4; Estimated Glomerular Filt Rate > 60; Glucose Random 285 mg/dL (60-115); Potassium 3.1 mmol/L (3.3-5.1); Sodium 139 mmol/L (135-145); Total Protein 7.2 g/dL (6.5-8.0)
[2021-11-11 11:12] LABS: Troponin-I High Sensitivity 8.1 ng/L (<3.5-17.0)
[2021-11-11] MEDS: methylPREDNISolone Sod Succ 125 MG/2 ML VIAL IVPUSH (11:19)
--- NOTE | 2021-11-11 12:15 | PC.RT ---
pt in ED sleeping and witnessed apnic episode by RT. Sats at 82% on room air. pt was then awaken and stats went up to mid 90's. pt should be on 02 and also need overnight oximetry. she should also follow up with pulmonary and also an outpatient sleep study.
--- NOTE | 2021-11-11 12:48 | P.HPHOSP_ITS ---
History of Present Illness Date of Service: 11/11/21 Chief Complaint: Shortness of breath 61-year-old female with a past medical history of hypertension, hyperlipidemia, diabetes, depression, asthma who presents to the ED with several days of progressive shortness of breath, worse with activity, associated with wheezing and non productive, and using inhalers more frequently, found to have O2 sat of 87 in ED. Nl WBC, CXR no acute finding, covid and Influeza. Being admitted for asthma exacerbation. Review of Systems Review of Systems: Gen: no fever Resp: +sob,+ cough CV: no chest, no LANGE, no leg edema GI: No n/v, no abd pain Neuro: No confusion Yes all other systems are reviewed and are negative [facility] Medical History Arthritis Asthma Bilateral post-traumatic osteoarthritis of knee Cocaine use Depression Diabetes mellitus DUB (dysfunctional uterine bleeding) Dyslipidemia GERD (gastroesophageal reflux disease) History of allergic rhinitis History of headache Hx of low back pain Hypertension Insomnia Morbid obesity with BMI of 50.0-59.9, adult Obesity Right knee pain Screen for colon cancer Family History Father No problems noted. Mother No problems noted. Maternal Grandmother Throat cancer Sister In good health Brother In good health Surgical History History of open reduction and internal fixation (ORIF) procedure Hx of cystoscopy Social History Household Members: Family Housing: Apartment Are you a primary manager medicare marketing to a significant other at home: No Do you presently have visiting nurse or other home services: No Alcohol intake: never Patient Tobacco Use Status: Never used Tobacco e-Cigarette/Vaping Use: Never Used Second Hand Smoke Exposure: No Use of substances other than those prescribed or required for medical reasons: No Substance Use Type: Crack/Cocaine and Opiates Advance Directives: No Advance Directives Information Provided: No Patient : No service: No Current occupational status: unemployed and disabled Current occupation: right handed Meds Allergies Allergy/AdvReac Type Severity Reaction Status Date / Time No Known Allergies Allergy Verified 07/27/21 08:27 Active Medications: Current Medications Magnesium Sulfate (Magnesium Sulfate/H2o) 2 gm in 50 mls @ 25 mls/hr IV ONCE ONE Stop: 11/11/21 14:07 Physical Exam Vital Signs and Narrative: Vital Signs: Last Vital Signs Temp 98.7 F 11/11/21 10:18 Pulse 87 11/11/21 12:12 Resp 20 11/11/21 12:12 BP 182/80 H 11/11/21 10:34 Pulse Ox 87 L 11/11/21 12:14 O2 Del Method 11/11/21 12:14 BMI result Body Mass Index 51.0 Const: Other: Constitutional: Alert, in no distress, overweight. Mental Status: Oriented to person, place and time. Eyes: Pupils are equal, round and reactive to light. Ear, Nose and Throat: Oropharynx clear, mucous membranes moist. Ears and nose without eformities. Trachea midline. Respiratory: diminished breath sound. some wheezing, no accessory muscle use Cardiovascular: S1 S2 regular. No murmurs, rubs or gallops. Gastrointestinal: Abdomen soft, non-tender, non-distended. Normal bowel sounds.? Neurologic: Cranial nerves II-XII grossly intact. No focal neurological deficits. Moves all extremities spontaneously.? Skin: No rashes or lesions.? Musculoskeletal: No cyanosis or clubbing. Psychiatric: Normal mood and affect? Results Labs CBC and Chem 7: 11/11/21 10:34 11/11/21 10:34 Imaging Radiologist's Impressions: Impressions Chest X-Ray 11/11/21 11:06 IMPRESSION: Mild cardiomegaly. No acute process seen in the chest. Assessment and Plan (1) Asthma: Status: Acute (2) Morbid obesity with BMI of 50.0-59.9, adult: Status: Acute (3) Hypoxia: Status: Acute Plan 61/F with HTN, HLD, obesity, asthma with acute exacerbation of asthma with hypoxia 1/Acute hypoxic respriatory failure d/t acute exacerbartion of asthma -Bronchodilators scheduled and PRN -IV steroid -O2 to keep sat> 92 HTN--Lisinopril Diabtes--continue metformin, SSI, Linaglipitin if on formulary Morbid obesity--weight loss advised to minimize negativel health effects HypOkalemia--oral K replacement DVT prophylaxis:? Lovenox Code status:? Full code Quality Stroke Does the patient have a stroke diagnosis?: No VTE Prior VTE?: No VTE Risk Level:: Medical - moderate - high VTE Device Contraindication: Treatment Not Tolerated VTE Drug Contraindication: N/A - Med Ordered
--- NOTE | 2021-11-11 13:31 | PC.NURSE ---
dr. hernandez at bedside, pt aware of plan of care for admission.
[2021-11-11 14:29] LABS: Glucose, Whole Blood 414 mg/dL (60-115)
--- NOTE | 2021-11-11 14:56 | PHA.MEDREC ---
Pharmacy Consult ? Medication Reconciliation Pharmacy has completed the medication reconciliation.
[2021-11-11] MEDS: Magnesium Sulfate/H2O 2 GM/50 ML PIGGYBACK IV (14:58)
[2021-11-11] MEDS: Potassium Chloride Packet 20 MEQ PACKET 40 MEQ PO (14:58)
[2021-11-11] MEDS: Enoxaparin Sodium 40 MG/0.4 ML SYRINGE SUBCUT (14:58)
[2021-11-11] MEDS: methylPREDNISolone Sod Succ 40 MG/ML VIAL IVPUSH ×2 (14:59→19:34)
[2021-11-11] MEDS: Albuterol Sulfate (0.083%) 2.5 MG/3 ML VIAL.NEB INHALE ×2 (15:51→18:27)
--- NOTE | 2021-11-11 17:38 | PC.NURSE ---
pt a&ox3, vss, reporting that she is hungry and has a 10/10 headache.
[2021-11-11] MEDS: Acetaminophen 325 MG TABLET 650 MG PO (17:40)
--- NOTE | 2021-11-11 18:47 | PC.NURSE ---
pt a&ox3, vss, POC 544, no sliding scale insulin orders. med rec complete by pharmacy, provider notified.
[2021-11-11 18:48] LABS: Glucose, Whole Blood 544 mg/dL (60-115)
[2021-11-11] MEDS: Insulin Lispro 100 UNIT/ML 3 ML VIAL 15 UNIT SUBCUT (19:33)
[2021-11-11] MEDS: metFORMIN HCl 1,000 MG TABLET 1000 MG PO (19:34)
--- NOTE | 2021-11-11 19:40 | PC.NURSE ---
pt a&ox3, vss, medicated per provider order. denies any pain at this time. pt requesting to use restroom, assisted to bathroom.
[2021-11-11] MEDS: Insulin Lispro 100 UNIT/ML 3 ML VIAL SUBCUT (21:05)
--- NOTE | 2021-11-11 21:16 | PC.NURSE ---
Pt alert and oriented x4, calm and cooperative. Pt denies pain now. Pt states shortness of breath has improved now at rest. Pt remains on 3 liters O2 with sat at 98%. Pt noted to be diaphoretic afebrile at 98.3, POC checked at it is >600. MD Traore aware and states give sliding scale protocol of 10 units subq and repeat STAT BMP now. Orders completed per MD. IV in left AC remains intact. Vitals stable. Report given to ROMAN Alfonso RN aware of patient status now.
[2021-11-11 21:38] LABS: Anion Gap 21 (12-20); Blood Urea Nitrogen 15 mg/dL (9-16); Calcium 9.8 mg/dL (8.4-10.2); Carbon Dioxide 21 mmol/L (22-29); Chloride 96 mmol/L (96-108); Creatinine Clr Calc Pharmacy 55.3; Estimated Glomerular Filt Rate 37; Potassium 4.7 mmol/L (3.3-5.1); Sodium 133 mmol/L (135-145)
[2021-11-11 21:39] LABS: Glucose, Whole Blood > 600 mg/dL (60-115)
[2021-11-11 21:46] LABS: Glucose Random 748 mg/dL (60-115)
[2021-11-11 21:54] LABS: Glucose, Whole Blood > 600 mg/dL (60-115)
--- NOTE | 2021-11-11 21:56 | PM.EVENT ---
Event Note Date of Service: 11/11/21 Event Note: Hyperglycemia: pt had FSG 544 at 1645pm-> Received 15u lispro at 7:30PM; and around 9pm FSG was >600 and Received 10u Lispro; Around 10PM pts BMP showed Glucose 748; and AG 21 and Hco3 is 21; Given 1lit NS bolus and Regular Insulin 5u IV push. Will closely follow POC glucose.
[2021-11-11] MEDS: Famotidine 20 MG TABLET PO (22:07)
[2021-11-11] MEDS: Topiramate 25 MG TABLET PO (22:07)
[2021-11-11] MEDS: 0.9 % Sodium Chloride 1,000 ML 999 ML IV (22:16)
[2021-11-11] MEDS: Insulin Regular, Human 100 UNIT/ML 3 ML VIAL IVPUSH (22:17)
--- NOTE | 2021-11-11 22:33 | PC.NURSE ---
2140 PT ARRIVED ON FLOOR FROM THE ER AND LAB CALLED WITH A BLOOD SUGAR OF 748. NOTIFIED 1000 CC NS BOLUS IV AND 5 UNITS OF REGULAR INSULIN IV ORDERED.BLOOD SUGAR TO BE REPEATED IN 1 HOUR.
--- NOTE | 2021-11-11 23:14 | PC.NURSE ---
repeat blood sugar is 472. notified and blood sugar to be repeated in one hour and 500 cc ns bolus.
[2021-11-11] MEDS: 0.9 % Sodium Chloride 500 ML IV (23:26)
[2021-11-11 23:32] LABS: Glucose, Whole Blood 472 mg/dL (60-115)
[2021-11-12 00:38] LABS: Glucose, Whole Blood 365 mg/dL (60-115)
--- NOTE | 2021-11-12 00:42 | PC.NURSE ---
0030 repeat blood sugar 365. notified.
[2021-11-12] MEDS: methylPREDNISolone Sod Succ 40 MG/ML VIAL IVPUSH ×2 (01:52→07:54)
[2021-11-12 01:54] LABS: Anion Gap 16 (12-20); Blood Urea Nitrogen 13 mg/dL (9-16); Carbon Dioxide 23 mmol/L (22-29); Chloride 104 mmol/L (96-108); Creatinine Clr Calc Pharmacy 78.3; Estimated Glomerular Filt Rate 56; Glucose Random 396 mg/dL (60-115); Potassium 4.7 mmol/L (3.3-5.1); Sodium 138 mmol/L (135-145)
[2021-11-12 03:29] VITALS: BP 152/68; PULSE 94; RESP 18; TEMP 36.4; O2SAT 94
[2021-11-12 07:42] LABS: Glucose, Whole Blood 353 mg/dL (60-115)
[2021-11-12 07:50] VITALS: BP 152/69; PULSE 82; RESP 19; TEMP 36.4; O2SAT 95
[2021-11-12] MEDS: Insulin Lispro 100 UNIT/ML 3 ML VIAL SUBCUT (07:53)
[2021-11-12] MEDS: Escitalopram Oxalate 10 MG TABLET PO (07:54)
[2021-11-12] MEDS: 0.9 % Sodium Chloride Flush 3 ML SYRINGE IVFLUSH (07:54)
[2021-11-12] MEDS: Topiramate 25 MG TABLET PO (07:54)
[2021-11-12] MEDS: Pyridoxine HCl (Vitamin B6) 50 MG TABLET 100 MG PO (07:54)
[2021-11-12] MEDS: metFORMIN HCl 1,000 MG TABLET 1000 MG PO (07:54)
[2021-11-12] MEDS: Famotidine 20 MG TABLET PO (07:55)
[2021-11-12] MEDS: lisinopriL 40 MG TABLET PO (07:55)
[2021-11-12] MEDS: Acetaminophen 325 MG TABLET 650 MG PO (07:55)
[2021-11-12 08:47] VITALS: PULSE 100; RESP 22; O2SAT 96
[2021-11-12] MEDS: Albuterol Sulfate (0.083%) 2.5 MG/3 ML VIAL.NEB INHALE (08:47)
[2021-11-12] MEDS: Fluticasone Propionate 100 MCG BLST.W.DEV 1 PUFF INHALE (08:47)
--- NOTE | 2021-11-12 10:21 | PM.DS ---
DS: Providers Provider Date of Service: 11/12/21 Date of admission: 11/11/21 13:11 Primary care physician: Josephine Austin MD DS: Diagnosis Discharge Diagnosis (1) Asthma: Status: Acute (2) Morbid obesity with BMI of 50.0-59.9, adult: Status: Acute (3) Hypoxia: Status: Acute DS: Summary Hospital Course Hospital Course: Chief Complaint: Shortness of breath 61-year-old female with a past medical history of hypertension, hyperlipidemia, diabetes, depression,? asthma who presents to the ED with several days of progressive shortness of breath, worse with activity, associated with wheezing? and non productive,? and using inhalers more frequently, found to have O2 sat of 87 in ED. Nl WBC, ? CXR no acute finding, ? covid and Influeza. Being admitted for asthma exacerbation. Hospital course: Patient was admitted over night and treated with IV solumedrol, bronchodilators by Neb and oxgyen as need and made rapic recovery than anticipated, hypoxia has resolved, no wheezes on exam, unfortunately her blood sugars high been high due to steroid and some of her meds (linagliptin ) not on formulary. She will be discharged with Prednisone 20 mg daily for the next 5 days and to continue use of her inhalers . She is brething comfortably and her oxygen saturation Time Spent with Patient Time attestation: Total time spent providing and/or coordinating discharge services: Discharge coordination time: Greater than 30 minutes Quality: Safe Use of Opioids Does Pt have an Active Cancer Diagnosis on the Problem List?: No Quality: Stroke Does the patient have a stroke diagnosis?: No Physical Exam Vital Signs: Vital Signs: Last Vital Signs Temp 97.5 F 11/12/21 07:50 Pulse 100 11/12/21 08:47 Resp 22 H 11/12/21 08:47 BP 152/69 H 11/12/21 07:50 Pulse Ox 95 11/12/21 07:50 O2 Del Method 11/12/21 07:50 O2 Flow Rate 3 11/11/21 23:23 BMI result Body Mass Index 51.0 Const: Other: General: AO X 3, no acute distress Resp: CTA bilateral, no accessory mucle use CVS: S1,S2,RRR GI: +BS, NT, no distention Skin: No rash Neuro: motor grossly intact Psych: appropriate affect DS: Data Data Completed and Pending Completed studies during hospitalization [Text1]: Procedures Dilation of Left Ureter with Intraluminal Device, Via Natural or Artificial Opening Endoscopic (10/29/20) Fluoroscopy of Left Kidney, Ureter and Bladder (10/29/20) Labs on day of discharge: Laboratory Results - last 24 hr 11/11/21 11/11/21 11/11/21 10:34 10:34 10:34 WBC 8.4 RBC 5.08 Hgb 12.3 Hct 39.1 MCV 77.0 L MCH 24.2 L MCHC 31.5 RDW 15.2 Plt Count 279 MPV 10.0 Immature Gran % (Auto) 0.4 Neut % (Auto) 67.6 Lymph % (Auto) 20.9 [place] % (Auto) 9.8 Eos % (Auto) 0.8 Baso % (Auto) 0.5 Lymph # (Auto) 1.8 [place] # (Auto) 0.8 Eos # (Auto) 0.1 Baso # (Auto) 0.0 Abs Immat Gran (auto) 0.03 Absolute Neuts (auto) 5.7 Absolute Nucleated RBC 0.000 Nucleated RBC % (auto) 0.0 Sodium 139 Potassium 3.1 L Chloride 98 Carbon Dioxide 31 H Anion Gap 13 BUN 9 Creatinine 0.82 Estim Creat Clear Calc 96.4 Estimated GFR > 60 POC Glucose Random Glucose 285 H Calcium 9.1 Total Bilirubin 0.8 AST 25 ALT 22 Alkaline Phosphatase 138 H Troponin I High Sens Total Protein 7.2 Albumin 3.5 COVID-19 (ANNY) COVID-19 Clin Com Influenza Type A (CARLIE) Negative Influenza Type B (CARLIE) Negative Influenza A & B Note See Note 11/11/21 11/11/21 11/11/21 10:34 10:34 14:25 WBC RBC Hgb Hct MCV MCH MCHC RDW Plt Count MPV Immature Gran % (Auto) Neut % (Auto) Lymph % (Auto) [place] % (Auto) Eos % (Auto) Baso % (Auto) Lymph # (Auto) [place] # (Auto) Eos # (Auto) Baso # (Auto) Abs Immat Gran (auto) Absolute Neuts (auto) Absolute Nucleated RBC Nucleated RBC % (auto) Sodium Potassium Chloride Carbon Dioxide Anion Gap BUN Creatinine Estim Creat Clear Calc Estimated GFR POC Glucose 414 H* Random Glucose Calcium Total Bilirubin AST ALT Alkaline Phosphatase Troponin I High Sens 8.1 Total Protein Albumin COVID-19 (ANNY) Negative COVID-19 Clin Com See Note Influenza Type A (CARLIE) Influenza Type B (CARLIE) Influenza A & B Note 11/11/21 11/11/21 11/11/21 18:43 20:52 21:09 WBC RBC Hgb Hct MCV MCH MCHC RDW Plt Count MPV Immature Gran % (Auto) Neut % (Auto) Lymph % (Auto) [place] % (Auto) Eos % (Auto) Baso % (Auto) Lymph # (Auto) [place] # (Auto) Eos # (Auto) Baso # (Auto) Abs Immat Gran (auto) Absolute Neuts (auto) Absolute Nucleated RBC Nucleated RBC % (auto) Sodium 133 L Potassium 4.7 D Chloride 96 Carbon Dioxide 21 L Anion Gap 21 H BUN 15 D Creatinine 1.43 H Estim Creat Clear Calc 55.3 Estimated GFR 37 POC Glucose 544 H* > 600 H* Random Glucose 748 H* D Calcium 9.8 D Total Bilirubin AST ALT Alkaline Phosphatase Troponin I High Sens Total Protein Albumin COVID-19 (ANNY) COVID-19 Clin Com Influenza Type A (CARLIE) Influenza Type B (CARLIE) Influenza A & B Note 11/11/21 11/11/21 11/12/21 21:50 23:12 00:32 WBC RBC Hgb Hct MCV MCH MCHC RDW Plt Count MPV Immature Gran % (Auto) Neut % (Auto) Lymph % (Auto) [place] % (Auto) Eos % (Auto) Baso % (Auto) Lymph # (Auto) [place] # (Auto) Eos # (Auto) Baso # (Auto) Abs Immat Gran (auto) Absolute Neuts (auto) Absolute Nucleated RBC Nucleated RBC % (auto) Sodium Potassium Chloride Carbon Dioxide Anion Gap BUN Creatinine Estim Creat Clear Calc Estimated GFR POC Glucose > 600 H* 472 H* 365 H* Random Glucose Calcium Total Bilirubin AST ALT Alkaline Phosphatase Troponin I High Sens Total Protein Albumin COVID-19 (ANNY) COVID-19 Clin Com Influenza Type A (CARLIE) Influenza Type B (CARLIE) Influenza A & B Note 11/12/21 11/12/21 01:21 07:37 WBC RBC Hgb Hct MCV MCH MCHC RDW Plt Count MPV Immature Gran % (Auto) Neut % (Auto) Lymph % (Auto) [place] % (Auto) Eos % (Auto) Baso % (Auto) Lymph # (Auto) [place] # (Auto) Eos # (Auto) Baso # (Auto) Abs Immat Gran (auto) Absolute Neuts (auto) Absolute Nucleated RBC Nucleated RBC % (auto) Sodium 138 Potassium 4.7 Chloride 104 Carbon Dioxide 23 Anion Gap 16 BUN 13 Creatinine 1.01 Estim Creat Clear Calc 78.3 Estimated GFR 56 POC Glucose 353 H* Random Glucose 396 H* D Calcium 10.0 Total Bilirubin AST ALT Alkaline Phosphatase Troponin I High Sens Total Protein Albumin COVID-19 (ANNY) COVID-19 Clin Com Influenza Type A (CARLIE) Influenza Type B (CARLIE) Influenza A & B Note Discharge Plan Discharge Anticipated Discharge Date/Time: 11/12/21 10:17 Patient Disposition: Home, Self-Care Discharge Diagnosis: Asthma exacerbation, hypoxia Referrals: Josephine Lemons MD [Primary Care Provider] - 1 Week Discharge Medications: New prednisone 20 mg tablet 20 mg PO DAILY Qty: 5 0RF Continued albuterol sulfate 90 mcg/actuation HFA aerosol inhaler 2 puff inhalation Q6H PRN (Reason: bronchospasm) 30 Days Qty: 6.7 0RF (DME) blood pressure monitor [Blood Pressure Kit] Kit See Rx Instructions .ROUTE .MEDSUPPLY Qty: 1 0RF Rx Instructions: As directed (DME) FreeStyle Lite Strips Strip See Rx Instructions .ROUTE .MEDSUPPLY Qty: 100 3RF Rx Instructions: As directed check the BS QD (DME) blood-glucose meter [FreeStyle Lite Meter] Kit See Rx Instructions .ROUTE .MEDSUPPLY Qty: 1 0RF Rx Instructions: As directed citalopram 20 mg tablet 20 mg PO DAILY 90 Days Qty: 90 3RF famotidine [Pepcid] 20 mg tablet 20 mg PO BID 30 Days Qty: 60 6RF Flovent HFA 110 mcg/actuation HFA aerosol inhaler 1 puff INHALATION BID 90 Days Qty: 36 3RF lisinopril 40 mg tablet 40 mg PO DAILY 90 Days Qty: 90 3RF metformin 1,000 mg tablet 1,000 mg PO BID 90 Days Qty: 180 1RF naproxen 500 mg tablet 500 mg PO BID PRN (Reason: pain) Qty: 10 0RF (DME) AeroEclipse II Nebulizer Misc See Rx Instructions .Route Qty: 1 0RF Rx Instructions: As directed pyridoxine (vitamin B6) 100 mg tablet 100 mg PO DAILY 90 Days Qty: 90 1RF topiramate 25 mg tablet 25 mg PO BID 90 Days Qty: 180 1RF Tradjenta 5 mg tablet 5 mg PO DAILY 90 Days Qty: 90 0RF (DME) AeroEclipse II Nebulizer Misc See Rx Instructions .Route Qty: 1 0RF Rx Instructions: As directed Discharge Orders: Discharge Order (Routine); Ordered 11/12/21 Ordered By: Malcolm Alexander Diet: advance to usual diet and diabetic diet Activity on Discharge: As tolerated Stand Alone Forms: Patient Portal Discharge page Care Plan Goals: Full recovery from asthma exacerbation Health Concerns: Asthma Plan of Treatment: use inhalers as directed and follow up with your doctor in a week Assessment: as above
--- NOTE | 2021-11-12 10:38 | MHC.CM.PN ---
HOME - SELF CARE
[2021-11-12 11:22] LABS: Glucose, Whole Blood 321 mg/dL (60-115)
== END 2021-11-12 11:45 | disposition home or self-care (01) | DRG 141 ==
LOC: HO.ED 11:12 → HO.EDOVER 13:47 → HO.S3 18:41
PROVIDERS: Hospitalist; Nurse Practitioner Family; Admitting Provider Internal Medicine; Emergency Provider Emergency Medicine; PCP Internal Medicine; Visit Provider Internal Medicine
DX: J45.901 Unspecified asthma with (acute) exacerbation (principal); J96.01 Acute respiratory failure with hypoxia; E11.65 Type 2 diabetes mellitus with hyperglycemia; E78.5 Hyperlipidemia, unspecified; T38.0X5A Adverse effect of glucocorticoids and synthetic analogues, initial encounter; E87.6 Hypokalemia; E66.01 Morbid (severe) obesity due to excess calories; Z68.43 Body mass index [BMI] 50.0-59.9, adult; Z20.822 Contact with and (suspected) exposure to COVID-19; Z79.51 Long term (current) use of inhaled steroids; Z79.899 Other long term (current) drug therapy
CPT/HCPCS: 36415; 71046; 80048; 80053; 82947; 84484; 85025; 87502; 87635; 93005; 94640; 96365; 96366; 96375; 99218; 99285; J1650; J2920; J2930; J3475